=== PATIENT | female | born 1995 | race Caucasian/White ===

== ENCOUNTER 2017-06-10 08:30 | Day surgery (SDC) | payer OTHER, SELFPAY ==
[2017-06-03 17:46] LABS: Internal QC Validated? YES +Cl - CLEAR BKGD; Pregnancy, Urine Negative Negative
[2017-06-03 17:53] LABS: Hematocrit 38.2 % (37-47); Hemoglobin 12.1 g/dl (12.0-15.0); Mean Corp Hgb Conc 31.7 g/gl (32-36); Mean Corpuscular Hgb 25.3 pg (27.0-32.0); Mean Corpuscular Volume 79.7 fL (81-99); Mean Platelet Vol. 10.8 fl (6.2-12.0); Platelet Count 204 K/mm3 (150-450); RBC Distribution Width SD 44.3 fl (35.1-43.9); Red Blood Count 4.79 M/mm3 (4.2-5.4); White Blood Count 6.1 K/mm3 (4.4-11.0)
[2017-06-03 17:54] LABS: International Normalized Ratio 0.9; Partial Thromboplast Time 27.4 Seconds (24.1-36.2); Prothrombin Time (Protime)PT. 12.5 SECONDS (11.7-14.9)
[2017-06-03 17:57] LABS: Scan Indicated on CBC? Y/N NO
[2017-06-03 18:42] LABS: Pregnancy, Serum, hCG Quali. NEGATIVE Negative (0-9 Nonpreg)
[2017-06-10] VITALS (8 sets, daily range): BP systolic 120–140; BP diastolic 67–88; PULSE 63–82; RESP 16–18; TEMP 36.2–36.8; O2SAT 98–100; BMI 26.2
[2017-06-10 08:54] LABS: Internal QC Validated? YES +Cl - CLEAR BKGD; Pregnancy, Urine Negative Negative
--- NOTE | 2017-06-10 09:56 | PCM.DC ---
You will use the following diet at home:: No restrictions Your food should be the consistency of: Regular Discharge Activity: Return to Normal Activity, May Not Drive, May not drive while taking narcotic pain medications., May Shower Return to work on:: 06/17/17 May shower in (days): 0 May resume sexual activity in: 3 weeks Call your doctor if your incision/area has: Sudden Increased Bleeding, Increased Pain/ Swelling, Increased Redness, Foul Smelling Discharge, Swelling at the incision site Call your doctor if you observe: Fever of 101 or Higher, Inability to urinate, Inability to have a bowel movement, Using more than one pad per hour, Shortness of breath, Chest pain, Calf discomfort, Uncontrolled pain Remove Dressing in (days):: 2 Cleanse incision/area with: Soap & Water Allergies/Adverse Reactions: Allergies eluxadoline [From Viberzi] Adverse Reaction (Verified 06/02/17 15:24) Chest tightness Medications to take at Discharge Alosetron HCl [Lotronex] 0.5 mg PO DAILY 06/02/17 Ibuprofen [Motrin] 800 mg PO TID PRN PRN #30 tab 06/10/17 Oxycodone [Oxyir] 5 mg PO Q4H PRN PRN 7 Days #20 tab 06/10/17 The following prescriptions were given: Oxycodone [Oxyir] 5 mg PO Q4H PRN PRN 7 Days #20 tab PRN Reason: Severe Pain (6-10/10) Ibuprofen [Motrin] 800 mg PO TID PRN PRN #30 tab PRN Reason: pain or cramping Primary Care Physician: Vani Hansen PA [Primary Care Provider] - Please Follow Up With: Eliecer Erazo MD When: one week Proposed Discharge Date: 06/10/17
--- NOTE | 2017-06-10 09:59 | PCM.OPRPT ---
Problem List (1) Pelvic pain Status: Chronic (2) Primary female infertility Status: Chronic Report of Operation Date of Procedure: 06/10/17 Pre-Operative Diagnosis: Chronic pelvic pain Post-Operative Diagnosis: Same Surgery/Procedure Performed:: Diagnostic laparoscopy, chromopertubation Description of Surgical Findings:: Normal appearing cervix, uterus, ovaries, and fallopian tubes. Normal appearing liver, stomach, and appendix. No pelvic or abdominal scarring noted. No evidence of endometriosis. There was prompt fill and spill from both fallopian tubes on chromopertubation. momd teacher: Corky Romero Type of Anesthesia:: General Anesthesiologist: Jason Norman Specimen's removed: none Drains: none Estimated Blood Loss (mL): minimal Fluids Replaced: 1000cc LR Description of Procedure: Veronica was taken to the OR with IV running. She was given two grams of Cefotetan intravenously prior to the procedure for infection prophylaxis. General anesthesia was introduced without complication. She was then prepped and draped in the dorsal lithotomy position. SCDs were in place and operational from the preoperative area, through surgery, and into recovery. Attention was first directed to the vagina where an acorn style uterine manipulator was placed. The bladder was drained with a red rubber catheter. Attention was then directed to the abdomen where a 5mm vertical skin incision was made in the lower base of the umbilicus. The under lying subcutaneous tissue was the dissected down to the level of the fascia using blunt dissection with a Carly clamp. The abdominal wall was then elevated and a Veress needle was placed through the umbilical defect into the abdominal cavity. The abdomen was then inflated with CO2 gas to 12 Torr pressure. The veress needle was then removed and replaced with a 5 mm trocar and sleeve. The trocar was removed and replaced with the laparoscope. A thorough survey of the abdomen and pelvis was then performed with findings as mentioned above. A 5mm lateral side port was placed on the right side about 3 cm below the level of the umbilicus lateral to the inferior epigastric vessels. With no significant pelvic pathology noted chromopertubation was performed. There was prompt fill and spill from each fallopian tube. The pelvis was then vigorously irrigated and fluid removed with the suction physician representative. The laparoscopic port sites were removed after gas had been evacuated from the abdomen. The port site incisions were closed with 4-0 Monocryl suture. The incision sites were then injected with 0.25% Marcaine. The uterine manipulator was removed. Sponge and needle counts were correct. She was reversed from anesthesia and taken to the recovery room in stable condition. Grafts/Implants Used: none - Complications none - Admit VTE Documentation VTE Present on Admission: No VTE Mechan Device Prophylaxis: SCD's VTE Pharm Prophylaxis ordered?: No
--- NOTE | 2017-06-10 10:02 | OP.PCM_ITS ---
Problem List (1) Pelvic pain Status: Chronic (2) Primary female infertility Status: Chronic Report of Operation Date of Procedure: 06/10/17 Pre-Operative Diagnosis: Chronic pelvic pain Post-Operative Diagnosis: Same Surgery/Procedure Performed:: Diagnostic laparoscopy, chromopertubation Description of Surgical Findings:: Normal appearing cervix, uterus, ovaries, and fallopian tubes. Normal appearing liver, stomach, and appendix. No pelvic or abdominal scarring noted. No evidence of endometriosis. There was prompt fill and spill from both fallopian tubes on chromopertubation. carpet installer helper: Corky Romero Type of Anesthesia:: General Anesthesiologist: Jason Norman Specimen's removed: none Drains: none Estimated Blood Loss (mL): minimal Fluids Replaced: 1000cc LR Description of Procedure: Veronica was taken to the OR with IV running. She was given two grams of Cefotetan intravenously prior to the procedure for infection prophylaxis. General anesthesia was introduced without complication. She was then prepped and draped in the dorsal lithotomy position. SCDs were in place and operational from the preoperative area, through surgery, and into recovery. Attention was first directed to the vagina where an acorn style uterine manipulator was placed. The bladder was drained with a red rubber catheter. Attention was then directed to the abdomen where a 5mm vertical skin incision was made in the lower base of the umbilicus. The under lying subcutaneous tissue was the dissected down to the level of the fascia using blunt dissection with a Carly clamp. The abdominal wall was then elevated and a Veress needle was placed through the umbilical defect into the abdominal cavity. The abdomen was then inflated with CO2 gas to 12 Torr pressure. The veress needle was then removed and replaced with a 5 mm trocar and sleeve. The trocar was removed and replaced with the laparoscope. A thorough survey of the abdomen and pelvis was then performed with findings as mentioned above. A 5mm lateral side port was placed on the right side about 3 cm below the level of the umbilicus lateral to the inferior epigastric vessels. With no significant pelvic pathology noted chromopertubation was performed. There was prompt fill and spill from each fallopian tube. The pelvis was then vigorously irrigated and fluid removed with the suction cam milling machine operator. The laparoscopic port sites were removed after gas had been evacuated from the abdomen. The port site incisions were closed with 4 -0 Monocryl suture. The incision sites were then injected with 0.25% Marcaine. The uterine manipulator was removed. Sponge and needle counts were correct. She was reversed from anesthesia and taken to the recovery room in stable condition. Grafts/Implants Used: none - Complications none - Admit VTE Documentation VTE Present on Admission: No VTE Mechan Device Prophylaxis: SCD's VTE Pharm Prophylaxis ordered?: No
[2017-06-10] MEDS: Methylene Blue 1% 100 MG/10 ML VIAL (10:25)
[2017-06-10] MEDS: Bupivacaine 0.25% 30 ML Vial (10:38)
[2017-06-10] MEDS: Ondansetron ODT 4 MG Tablet 8 MG PO (13:01)
== END 2017-06-10 13:48 | disposition home or self-care (01) ==
LOC: SDC 08:30 → AC 08:31
PROVIDERS: Family Provider Physician Assistant; PCP Physician Assistant; Visit Provider Obstetrics & Gynecology
PROC: (CPT 49320; principal; 2017-06-10 09:45)
DX: N97.9 Female infertility, unspecified (principal); R10.2 Pelvic and perineal pain; K58.0 Irritable bowel syndrome with diarrhea; Z79.899 Other long term (current) drug therapy; G89.29 Other chronic pain
CPT/HCPCS: 00952; 49320; 58350; 36415; 81025; 84703; 85027; 85610; 85730; 86850; 86900; J7120; J2405

== ENCOUNTER → 2018-02-22 16:31 | Outpatient (CLI) | payer OTHER, SELFPAY ==
[2018-02-22 16:05] VITALS: BMI 26.6
--- NOTE | 2018-02-22 16:35 | RAD_ITS ---
STUDY: X-RAY - LEFT ELBOW REASON FOR EXAM: Female, 23 years old. Pain TECHNIQUE: Three view(s) of the elbow were obtained. COMPARISON: None. FINDINGS: Bones: There are no acute osseous abnormalities. Joints: The visualized joints are normal in appearance. Soft tissues: The soft tissues are unremarkable. There is no elevation of the posterior fat pad. RAD/Elbow min 3 Views IMPRESSION: No acute abnormalities are seen in the left elbow. Electronically Signed: Elisha Rome MD at 16:56 EST Tel Direct: [phone], Service support ,
== END ==
PROVIDERS: Family Provider Physician Assistant; PCP Physician Assistant; Referring Provider Physician Assistant; Visit Provider Physician Assistant
DX: M25.522 Pain in left elbow (principal)
CPT/HCPCS: 73080

== ENCOUNTER → 2019-09-30 11:30 | Outpatient (CLI) | payer OTHER, SELFPAY ==
[2019-09-14 12:45] VITALS: BMI 27.8
--- NOTE | 2019-09-30 15:45 | STRESSREP ---
Stress Test Report Exercise stress test. 24-year-old lady with a history of atypical chest pain. Stress protocol: Resting EKG demonstrates sinus rhythm with a rate of 60 bpm normal intervals are noted resting blood pressure is 104/70 mmHg. The patient exercised according to regular Noe protocol for a total duration of 10 minutes. The maximum heart rate attained was 179 bpm which was 92% of maximum predicted heart rate the maximum workload was 11.7 metabolic equivalents. At rest there were no ST or T wave changes noted to suggest ischemia peak exercise upsloping ST changes only were noted with no meet the criteria for ischemia. No clinical angina was noted the test was terminated due to leg fatigue. There was some chest tightness noted which was fairly constant. The resting blood pressure was 104/70 with a peak blood pressure 132/62 mmHg. Conclusion: Normal exercise stress test at a high workload with no EKG criteria for ischemia. Chest discomfort noted throughout the exertion atypical and not consistent with angina.
== END ==
PROVIDERS: PCP Physician Assistant; Referring Provider Internal Medicine Cardiovascular Disease; Visit Provider Internal Medicine Cardiovascular Disease
DX: R07.9 Chest pain, unspecified (principal)
CPT/HCPCS: 93017

== ENCOUNTER → 2020-09-19 10:07 | Outpatient (CLI) | payer OTHER, SELFPAY ==
[2020-09-13 14:01] VITALS: BMI 27.8
[2020-09-19 12:04] LABS: AST(SGOT) 18 U/L (15-37); Alanine Aminotransfer ALT/SGPT 24 U/L (13-56); Albumin, Serum 3.8 g/dL (3.2-5.0); Alkaline Phosphatase 47 U/L (45-117); Bilirubin, Direct 0.13 mg/dL (0.00-0.30); Cholesterol 143 mg/dL (200); Globulin 3.6 g/dL (2.2-4.2); High Density Lipoprotein 45 mg/dL; Protein, Total 7.4 g/dL (6.4-8.2); T4 Free Direct 0.87 ng/dL (0.76-1.46); Thyroid Stim Hormone (TSH) 1.89 uIU/mL (0.358-3.74); Triglycerides 96 mg/dL; Very Low Density Lipoprotein 19 mg/dL (5-40)
== END ==
PROVIDERS: PCP Physician Assistant; Referring Provider Physician Assistant; Visit Provider Physician Assistant Medical
DX: E78.5 Hyperlipidemia, unspecified (principal); Z82.49 Family history of ischemic heart disease and other diseases of the circulatory system; L70.9 Acne, unspecified; E66.9 Obesity, unspecified
CPT/HCPCS: 36415; 80061; 80076; 82627; 84403; 84439; 84443; 82626

== ENCOUNTER → 2022-03-20 | Outpatient (CLI) | payer OTHER, SELFPAY ==
[2022-03-24 07:07] LABS: Chlamydia By Nucleic Acid AMP Negative (Negative)
[2022-03-24 08:32] LABS: Gonococcus By Nucleic Acid AMP Negative (Negative)
[2022-03-27 22:50] LABS: HPV Reflexed? NOT INDICATED
== END | disposition home or self-care (01) ==
LOC: LABSPEC 15:16
PROVIDERS: PCP Physician Assistant; Referring Provider Registered Nurse; Visit Provider Registered Nurse
DX: Z01.419 Encounter for gynecological examination (general) (routine) without abnormal findings (principal); N93.9 Abnormal uterine and vaginal bleeding, unspecified
CPT/HCPCS: 87491; 87591; 88175; G0145

== ENCOUNTER → 2022-03-26 | Outpatient (CLI) | payer OTHER, SELFPAY ==
--- NOTE | 2022-03-26 16:50 | US_ITS ---
STUDY: ULTRASOUND OF THE FEMALE PELVIS - COMPLETE REASON FOR EXAM: Female, 27 years old. Abnormal uterine bleeding LMP: 03/09/2022 TECHNIQUE: Transvaginal TECHNICAL QUALITY: Adequate. COMPARISON: None. FINDINGS: The uterus is anteverted and is in a midline position. The uterus measures 8 cm x 4.4 cm x 3.7 cm. Normal uterine cervix. The endometrium measures measures 14.4 mm in thickness, and is hyperechoic. There is no demonstrated endometrial mass. There is no demonstrated myometrial mass. I.U.D. - The patient does not have an I.U.D. The right ovary is visualized. The right ovary measures 2.7 cm x 2.1 cm x 1.6 cm. There is a 1.1 cm x 0.9 cm dominant follicle in the right ovary. There is no visualized right adnexal mass or complex lesion. There is normal arterial and normal venous vascularity. The left ovary is visualized. The left ovary measures 3.1 cm x 1.7 cm x 1.8 cm. There is no left ovarian cyst or ovarian mass. There is no visualized left adnexal mass or complex lesion. There is normal arterial and normal venous vascularity. There is no fluid in the cul-de-sac. US/Transvaginal Non- IMPRESSION: Thickened endometrium measuring 14.4 mm. Dominant follicle seen in the right ovary. Electronically Signed: Pito Wade MD at 8:07 EST ,
== END | disposition home or self-care (01) ==
LOC: US 16:48
PROVIDERS: PCP Physician Assistant; Referring Provider Registered Nurse; Visit Provider Registered Nurse
DX: N93.9 Abnormal uterine and vaginal bleeding, unspecified (principal)
CPT/HCPCS: 76830

== ENCOUNTER → 2022-04-02 | Outpatient (CLI) | payer OTHER, SELFPAY ==
--- NOTE | 2022-04-02 14:10 | EMB_PTH ---
PATIENT: DEREJE CALVO LOC: [facility] U#:[id number] AGE/SX: 27/F ROOM: RE04/02/[address]: ROSE MARIE Wilkins : 1995 BED: DIS: 04/02/2022 SPEC #: [id number] RECD: 04/02/22 15:10 STATUS: ISAMAR REShay #: [id number] EMILY: 04/02/22 14:[address]: Christen Wynn NP DEPT: SURGICAL PATHOLOGY RECD BY: Babs Barahona ENTERED: 04/03/22 08:37 SP TYPE: ENDOM BX/C MARIA G DR: TALISHA Junior Tissues: Endometrium, NOS Procedures: Surgery Specimen Level IV HEADER OPERATION: Endometrial biopsy PRE-OP DIAGNOSIS: Abnormal uterine bleeding TISSUE SUBMITTED: Endometrial tissue MICROSCOPIC DIAGNOSIS Endometrial biopsy: Secretory endometrium. CYNTHIA:oksana 04/04/2022 MICROSCOPIC DESCRIPTION Slides are reviewed. GROSS DESCRIPTION Received is one container labeled with the patient's name and not further designated. The specimen consists of multiple irregular fragments of montoya-pink soft tissue that in aggregate measure 2.5 x 3.0 x 0.3 cm. The specimen is totally submitted in one cassette. / SJ:oksana 04/03/2022 TC:4 CPT: 18687
== END | disposition home or self-care (01) ==
LOC: LABSPEC 15:32
PROVIDERS: PCP Physician Assistant; Visit Provider Nurse Practitioner Women's Health
DX: N93.9 Abnormal uterine and vaginal bleeding, unspecified (principal)
CPT/HCPCS: 88305

== ENCOUNTER → 2022-04-09 | Outpatient (CLI) | payer OTHER, SELFPAY ==
[2022-04-09 15:46] LABS: Absolute Lymphocyte Count 2.16 X10^3/uL (0.83-4.51); Absolute Neutrophil Count 3.7 X10^3/uL (2.0-7.7); Basophil# 0.03 X10^3/uL; Basophil% 0.5 % (0-1); Eosinophil# 0.14 X10^3/uL; Eosinophils% 2.2 % (0-5); Hematocrit 41.7 % (37-47); Hemoglobin 14.6 g/dL (12.0-15.0); Lymphocyte # 2.16 X10^3/ul (0.83-4.51); Lymphocyte % 33.8 % (19-41); Mean Corpuscular Hgb 30.6 pg (27.0-32.0); Mean Corpuscular Volume 87.4 fL (81-99); Mean Platelet Vol. 10.4 fl (6.2-12.0); Monocyte# 0.33 X10^3/uL; Monocyte% 5.2 % (0-10); NRBC Flagged by Analyzer 0 % (0-5); Neutrophil # 3.73 X10^3/uL (2.7-7.7); Neutrophil % 58.3 % (47-70); Platelet Count 209 K/mm3 (150-450); RBC Distribution Width CV 12.2 % (11.6-14.6); RBC Distribution Width SD 39.3 fl (35.1-43.9); Red Blood Count 4.77 M/mm3 (4.2-5.4); White Blood Count 6.4 K/mm3 (4.4-11.0)
[2022-04-09 16:06] LABS: Hemoglobin A1c 4.9 % (3.8-5.6)
[2022-04-09 17:22] LABS: Follicle Stimulating Hormone 7.1 mIU/mL; Luteinizing Hormone 5.3 mIU/mL; T4 Free Direct 0.96 ng/dL (0.76-1.46); Thyroid Stim Hormone (TSH) 2.23 uIU/mL (0.358-3.74)
== END | disposition home or self-care (01) ==
LOC: LAB 15:23
PROVIDERS: PCP Physician Assistant; Visit Provider Registered Nurse
DX: N93.9 Abnormal uterine and vaginal bleeding, unspecified (principal)
CPT/HCPCS: 36415; 83001; 83002; 83036; 84439; 84443; 85025

== ENCOUNTER 2022-09-30 12:25 | Emergency (ER) | payer OTHER, SELFPAY ==
[2022-09-30 12:25] VITALS: BP 130/83; PULSE 79; RESP 16; TEMP 36.6; O2SAT 100; BMI 30.9
--- NOTE | 2022-09-30 14:19 | EDS_ITS ---
HPI HPI - Female History of Present Illness Chief Complaint: Vag Bleeding Informant: patient Narrative Narrative: Patient is a 27-year-old female with history of heavy and painful periods, follows with [facility] RN, presenting with heavy vaginal bleeding. Her last menstrual period was September 05. She states it was a relatively normal menstrual cycle. She states her period is not due for another 6 days. Patient states she started having vaginal bleeding like a period on Thursday, 4 days ago. She states 2 days ago it became heavy. She states she went through 2 tampons in less than 2 hours and was passing clots. She went through 6-7 pads overnight. They seem to be medium pads. She states that today she had even more bleeding and started feel dizzy. She states when she is walking around she passed a clot approximately the size of a baseball. Patient denies any history of any bleeding issues except for having heavy bleeding. She states her half- sister has blood clots history. Patient states that she has had OB evaluation and was told she has thickened endometrial lining. She has had a prior uterine biopsy before. She was told possibly she might need a D&C but she is plan on starting to trying to conceive this month so she had not had the D&C done. Is complaining of pelvic cramping. No other complaints or concerns at this time. [facility] Medical History (Updated 09/30/22 @ 17:[address] Shirin Macdonald DO) Cardiac murmur due to mitral valve disorder Chronic neck and back pain GERD (gastroesophageal reflux disease) IBS (irritable bowel syndrome) Myxomatous mitral valve Primary female infertility Severe frontal headaches Shoulder pain Home Medications multivitamin 1 tab PO DAILY 04/02/22 [History Last Taken Unknown] famotidine 40 mg tablet (Pepcid) 40 mg PO QHS #14 tabs 09/30/22 [Rx Last Taken Unknown] tranexamic acid 650 mg tablet 650 mg PO Q8H 5 days #15 tabs 09/30/22 [Rx Last Taken Unknown] Allergy/AdvReac Type Severity Reaction Status Date / Time eluxadoline [From Vibben] AdvReac Chest Verified 09/30/22 12:27 tightness Family History Mother Heart disease, Onset Age: 47 CAD (coronary artery disease) Grandmother Heart disease, Onset Age: 46 CAD (coronary artery disease) Grandfather CAD (coronary artery disease) Other Cancer Hypertension Surgical History History of esophagogastroduodenoscopy (EGD) History of laparoscopy Social History Smoking Status: Never smoker alcohol intake: current alcohol intake frequency: a few times a month substance use type: does not use what type of physical activity do you participate in: aerobics and weight training frequency: 5-6 times per week ROS ROS ED Constitutional Constitutional ED: Reports other Details: Lightheaded/dizzy ; Denies chills or fever(s) Eyes Eyes: Denies change in vision Cardiovascular Cardiovascular: Denies chest pain Respiratory/Chest Respiratory/Chest: Denies cough Gastrointestinal Gastrointestinal: Reports abdominal pain; Denies nausea or vomiting Genitourinary Genitourinary ED: Reports other Details: Heavy uterine bleeding, pelvic cramping Musculoskeletal Musculoskeletal: Denies arthralgias or myalgias Integumentary Denies rash Neurologic Neurologic: Denies headache(s) Psychiatric Psychiatric: Denies anxiety Hematologic/Lymphatic Hematologic/Lymphatic: Denies easy bleeding or easy bruising EXAM Physical Exam Const Vital Signs: 09/30/22 12:25 09/30/22 17:31 Temperature 98 F Temperature Source Temporal Pulse Rate 79 65 Respiratory Rate 16 16 Blood Pressure 130/83 H 112/73 Blood Pressure Mean 98 Pulse Ox 100 97 Oxygen Delivery Method Room Air Positive well nourished and well developed General Appearance ED: well developed and NAD; Negative for pallor HEENT Reports moist mucous membranes Eyes PERRL and EOMs intact bilaterally General Eye ED: Negative for pale conjunctiva Neck supple Chest Wall inspection of chest normal and palpation of chest normal Resp normal respiratory effort and clear to auscultation bilaterally GI normal to inspection, nondistended, normoactive bowel sounds Palpation: tender suprapubic Extremity full ROM Neuro oriented x3 Sensorium / Orientation: alert Motor Exam: Negative for general weakness Psych mental status grossly normal Skin no rashes or lesions noted and no wounds General Skin Exam: Negative for jaundice or pallor MDM MDM MDM Narrative Medical decision making narrative: Patient is evaluated for heavy vaginal bleeding for the past few days. Does have a history of this as well as painful periods but this is heavier than normal. She also is dizzy. Vital signs are normal. She is given IV fluids. Will check CBC and urine . CBC shows a normal hemoglobin of 13.2 and her test is negative. She does not have an abnormal MCV or MCH. I spoke with EMERGENCY DEPARTMENT RN on-call, Dr. Gutierrez, who recommends either starting TXA or Megace (TXA if she is going to be trying to conceive and wants to avoid hormones) and then outpatient follow-up. I went to discuss plan of care with patient and reevaluate. She then says what about my chest pain. She had never previously mentioned any chest pain. Patient states that she is been having intermittent right-sided chest pain for the past few days that also radiates up and down her sternum. She notes she has had prior issues with reflux before but never been on any medicine. Does not currently have any chest pain. Does seem to be better when she sits up and worse when she lays flat. Denies any difficulty breathing. No other complaints or concerns at this time. Patient will be given Toradol to help with the bleeding in the ER and I will add on an EKG and a chest x-ray to rule out findings consistent with pericarditis on EKG. She denies any pleuritic pain. She is PE RC negative I do not think she needs work-up for pulmonary emboli. EKG shows sinus bradycardia with sinus arrhythmia. I do not think is cont ributory chest pain. No signs of pericarditis or ACS. Two-view chest x-ray to rule myself as well as radiology does not show any acute process. Patient is feeling better after Toradol for her cramps. No further chest pain. Discharged home. Lab Data Attestation: I reviewed the patient's lab results. Labs: Laboratory Results - last 24 hr 09/30/22 13:00 WBC 9.1 RBC 4.35 Hgb 13.2 Hct 39.3 MCV 90.3 MCH 30.3 MCHC 33.6 RDW Std Deviation 40.1 RDW Coeff of Maryuri 12.3 Plt Count 196 MPV 11.7 Immature Gran % (Auto) 0.300 Neut % (Auto) 73.5 H Lymph % (Auto) 20.8 [place] % (Auto) 4.9 Eos % (Auto) 0.2 Baso % (Auto) 0.3 Absolute Neuts (auto) 6.7 Absolute Lymphs (auto) 1.88 Nucleated RBC % 0 Urine Test Negative Radiography Chest X-Ray - ED: 2 View, Read by ED Physician, Read by Radiologist and No Acute Disease Diagnostic Testing: Clinical Impression(s) from Imaging Studies Chest X-Ray 09/30/22 15:30 IMPRESSION: No radiographic evidence of acute cardiopulmonary disease. Electronically Signed: Sean Harris DO at 16:48 EDT Reading Location ID and State: [facility] / [place] Tel [phone], Service support , Rhythm Strip Rhythm Strip: Sinus Rhythm Rate: 55 Ectopy: None EKG Initial EKG: Attestation: I personally reviewed and interpreted this EKG as follows: Interpretation: Sinus Bradycardia Comments: Sinus bradycardia at a rate of 55 bpm with sinus arrhythmia WA interval [address] segments Management Discussion w/another healthcare provider: Washer Off Discharge Plan Triage Chief Complaint: Vag Bleeding ED Provider: Shirin Macdonald Dx/Rx/DC Orders Clinical Impression: Abnormal uterine bleeding, Chest pain Instructions: ED Chest Pain, Noncardiac, ED Dysfunctional Uterine Bleeding Prescriptions: New tranexamic acid 650 mg tablet 650 mg PO Q8H 5 Days Qty: 15 0RF famotidine [Pepcid] 40 mg tablet 40 mg PO QHS Qty: 14 0RF No Action multivitamin Tablet 1 tab PO DAILY Primary Care Provider: Vani Hansen Referrals: Elisha Linares DO [Med Staff - Active Staff] - Keep Grace appointment Vani Hansen PA [Primary Care Provider] - Activity Restrictions/Additional Instructions: Exact cause of your chest pain is not clear. While you having heavy vaginal bleeding your hemoglobin and vital signs are stable. Please continue follow-up with your EMERGENCY DEPARTMENT RN. You may also take up to 600 mg (3 pills at a time) of ibuprofen every 6 hours. The anti-inflammatory effect of this helps with heavy vaginal bleeding. Disposition Disposition: Home, Self Care Discharge Date/Time: 09/30/22 17:33
[2022-09-30] MEDS: 0.9% Normal Saline 1,000 ML 1000 ML IV (14:27)
[2022-09-30 14:28] LABS: Absolute Lymphocyte Count 1.88 X10^3/uL (0.83-4.51); Absolute Neutrophil Count 6.7 X10^3/uL (2.0-7.7); Basophil# 0.03 X10^3/uL; Basophil% 0.3 % (0-1); Eosinophil# 0.02 X10^3/uL; Eosinophils% 0.2 % (0-5); Hematocrit 39.3 % (37-47); Hemoglobin 13.2 g/dL (12.0-15.0); Lymphocyte # 1.88 X10^3/ul (0.83-4.51); Lymphocyte % 20.8 % (19-41); Mean Corp Hgb Conc 33.6 g/dL (32-36); Mean Corpuscular Hgb 30.3 pg (27.0-32.0); Mean Corpuscular Volume 90.3 fL (81-99); Mean Platelet Vol. 11.7 fl (6.2-12.0); Monocyte# 0.44 X10^3/uL; Monocyte% 4.9 % (0-10); NRBC Flagged by Analyzer 0 % (0-5); Neutrophil # 6.65 X10^3/uL (2.7-7.7); Neutrophil % 73.5 % (47-70); Platelet Count 196 K/mm3 (150-450); RBC Distribution Width CV 12.3 % (11.6-14.6); RBC Distribution Width SD 40.1 fl (35.1-43.9); Red Blood Count 4.35 M/mm3 (4.2-5.4); White Blood Count 9.1 K/mm3 (4.4-11.0)
[2022-09-30 14:55] LABS: Internal QC Validated? YES +Cl - CLEAR BKGD; Pregnancy, Urine Negative Negative
--- NOTE | 2022-09-30 15:18 | EKG12_ITS ---
Test Reason : VAG BLEEDING Blood Pressure : / mmHG Vent. Rate : 055 BPM Atrial Rate : 055 BPM P-R Int : 102 ms QRS Dur : 078 ms QT Int : 472 ms P-R-T Axes : 014 031 028 degrees QTc Int : 451 ms Sinus bradycardia with sinus arrhythmia with short IN Otherwise normal ECG Confirmed by ARTHUR ALMEIDA ([id number]), film or videotape editor FRANKIE PITTS ([id number]) on 10/02/2022 11:36:20 AM Referred By: Confirmed By:ARTHUR ALMEIDA
[2022-09-30] MEDS: Ketorolac 15 MG/ML Vial IV (15:23)
--- NOTE | 2022-09-30 15:30 | RAD_ITS ---
INDICATION: chest pain EXAMINATION/TECHNIQUE: X-RAY - XR Chest 2 Views COMPARISON: FINDINGS: LINES/DEVICES: None. LUNGS: No consolidation, edema or effusion. No pneumothorax. MEDIASTINUM AND CARDIOVASCULAR STRUCTURES: Cardiac silhouette not enlarged. Central airways and mediastinal contour are unremarkable. BONES AND SOFT TISSUES: Unremarkable. RAD/Chest PA and Lateral IMPRESSION: No radiographic evidence of acute cardiopulmonary disease. Electronically Signed: Sean Harris DO at 16:48 EDT ,
[2022-09-30 17:31] VITALS: BP 112/73; PULSE 65; RESP 16; O2SAT 97
== END 2022-09-30 17:33 | disposition home or self-care (01) ==
PROVIDERS: Emergency Provider Emergency Medicine; PCP Physician Assistant; Visit Provider Emergency Medicine
DX: N93.9 Abnormal uterine and vaginal bleeding, unspecified (principal); K21.9 Gastro-esophageal reflux disease without esophagitis; Z79.899 Other long term (current) drug therapy; R07.9 Chest pain, unspecified
CPT/HCPCS: 71046; 81025; 85025; 93005; 96361; 96374; 99283; J7030; A4216

== ENCOUNTER → 2022-10-10 | Outpatient (CLI) | payer OTHER, SELFPAY | END | disposition home or self-care (01) | LOC: LABSPEC 16:54 | PROVIDERS: PCP Physician Assistant; Referring Provider Registered Nurse; Visit Provider Registered Nurse | DX: N93.9 Abnormal uterine and vaginal bleeding, unspecified (principal) | CPT/HCPCS: 87070; 87077; 87186; 87205 ==

== ENCOUNTER → 2022-12-08 | Outpatient (CLI) | payer OTHER, SELFPAY ==
[2022-12-08 08:29] LABS: AST(SGOT) 15 U/L (15-37); Alanine Aminotransfer ALT/SGPT 25 U/L (13-56); Albumin, Serum 3.3 g/dL (3.2-5.0); Alkaline Phosphatase 36 U/L (45-117); Bilirubin, Direct 0.08 mg/dL (0.00-0.30); Cholesterol 138 mg/dL (200); Globulin 3.7 g/dL (2.2-4.2); High Density Lipoprotein 58 mg/dL; Triglycerides 44 mg/dL; Very Low Density Lipoprotein 9 mg/dL (5-40)
== END | disposition home or self-care (01) ==
LOC: LAB 06:30
PROVIDERS: PCP Physician Assistant; Referring Provider Physician Assistant Medical; Visit Provider Physician Assistant Medical
DX: E78.5 Hyperlipidemia, unspecified (principal); Z82.49 Family history of ischemic heart disease and other diseases of the circulatory system
CPT/HCPCS: 36415; 80061; 80076

== ENCOUNTER → 2023-01-12 | Outpatient (CLI) | payer OTHER, SELFPAY ==
--- NOTE | 2023-01-12 08:11 | ECHOD_ITS ---
Reason For Study: MVP Procedure This was a 2D Doppler, Color Flow transthoracic echocardiogram. Exam performed in department. Left Ventricle Normal LV size. Left ventricular systolic function is normal. The estimated ejection fraction is 60 %. No regional wall motion abnormalities noted. Right Ventricle Normal RV size. Normal systolic function. Atria Normal left atrium. Normal right atrium. Mitral Valve Normal mitral valve. Tricuspid Valve Normal tricuspid valve. Aortic Valve Normal aortic valve. Trisinus/trileaflet aortic valve. Pulmonic Valve Normal pulmonic valve. Great Vessels Normal aortic root. The pulmonary artery is normal size. Normal inferior vena cava. Pericardium/Pleural No pericardial effusion. MMode/2D Measurements & Calculations LVIDd: 4.9 cm IVSd: 0.66 cm Ao root diam: 2.8 cm LVIDs: 3.6 cm LVPWd: 0.68 cm LA dimension: 2.9 cm RVDd: 3.5 cm FS: 27.4 % LAV(MOD-bp): 30.7 ml LA A4 area: 14.4 cm2 RA A4 area: 15.3 cm2 LAV(MOD-bp) Indexed: 17.3 ml/m2 LAV(MOD-sp2): 27.4 ml LAV(MOD-sp4): 33.6 ml TAPSE: 1.9 cm Time Measurements MV dec time: 0.29 sec Doppler Measurements & Calculations MV E max luis: 82.1 cm/sec Lat Peak E' Luis: 23.8 cm/sec Med Peak E' Luis: 17.3 cm/sec MV A max luis: 48.1 cm/sec E/E' lat: 3.5 E/E' med: 4.7 MV E/A: 1.7 MV V2 max: 85.7 cm/sec MV P1/2t max luis: 86.1 cm/sec Ao V2 max: 130.4 cm/sec MV max P.9 mmHg MV P1/2t: 89.3 msec Ao max P.8 mmHg MV V2 mean: 40.4 cm/sec Ao V2 mean: 93.5 cm/sec MV mean P.82 mmHg MV dec slope: 282.4 cm/sec2 Ao mean P.9 mmHg MV V2 VTI: 26.0 cm MVA(P1/2t): 2.5 cm2 Ao V2 VTI: 28.8 cm AV (velocity ratio): 0.86 LV V1 max: 112.6 cm/sec PA V2 max: 112.1 cm/sec TR max luis: 188.7 cm/sec LV V1 max P.1 mmHg PA V2 mean: 78.1 cm/sec TR max P.2 mmHg LV V1 mean P.0 mmHg LV V1 mean: 81.8 cm/sec LV V1 VTI: 24.7 cm ECHO/Echo Complete Interpretation Summary Normal LV size. Left ventricular systolic function is normal. The estimated ejection fraction is 60 %. Structurally normal valves. Ordering Physician: Amairani Brooke Referring Physician: Amairani Brooke Performed By: Ki Sigala RCS
== END | disposition home or self-care (01) ==
LOC: CVS 08:10
PROVIDERS: PCP Physician Assistant; Referring Provider Physician Assistant Medical; Visit Provider Physician Assistant Medical
DX: I34.1 Nonrheumatic mitral (valve) prolapse (principal); Z82.49 Family history of ischemic heart disease and other diseases of the circulatory system
CPT/HCPCS: 93306

== ENCOUNTER → 2024-04-20 | Outpatient (CLI) | payer OTHER, SELFPAY ==
[2024-04-20 19:30] LABS: Cholesterol 150 mg/dL (<=200); High Density Lipoprotein 44 mg/dL; Low Density Lipoprotein Calc. 83 mg/dL; Triglycerides 117 mg/dL; Very Low Density Lipoprotein 23 mg/dL (5-40); cholesterol:hdl ratio screen 3.45
[2024-04-20 19:31] LABS: AST(SGOT) 22 U/L (<=31); Alanine Aminotransfer ALT/SGPT 20 U/L (<=34); Albumin, Serum 4.3 g/dL (3.5-5.0); Alkaline Phosphatase 30 U/L (35-104); Bilirubin, Direct < 0.08 mg/dL (0.00-0.30); Globulin 3.1 g/dL (2.2-4.2); Protein, Total 7.3 g/dL (5.9-8.4); Total Bilirubin 0.18 mg/dL (0.00-1.30)
== END | disposition home or self-care (01) ==
LOC: LAB 16:07
PROVIDERS: PCP Physician Assistant; Referring Provider Physician Assistant Medical; Visit Provider Physician Assistant Medical
DX: E78.5 Hyperlipidemia, unspecified (principal); Z82.49 Family history of ischemic heart disease and other diseases of the circulatory system
CPT/HCPCS: 36415; 80061; 80076

== ENCOUNTER → 2024-07-21 | Outpatient (CLI) | payer OTHER, SELFPAY ==
[2024-07-21 09:06] LABS: Internal QC Validated? YES +Cl - CLEAR BKGD; Pregnancy, Urine Negative Negative
== END | disposition home or self-care (01) ==
PROVIDERS: PCP Physician Assistant; Referring Provider Anesthesiology Pain Medicine; Visit Provider Anesthesiology Pain Medicine
DX: Z34.90 Encounter for supervision of normal pregnancy, unspecified, unspecified trimester (principal)
CPT/HCPCS: 81025

== ENCOUNTER → 2025-02-06 | Outpatient (CLI) | payer OTHER, SELFPAY ==
--- NOTE | 2025-02-06 09:58 | CDU_ITS ---
Reason For Study Reason For Study: Dizziness Rt. Velocities/BP Lt. Velocities/BP Prox CCA 118.0/23.0 cm/sec. Prox CCA 116.2/23.0 cm/sec. Mid CCA 101.4/24.1 cm/sec. Mid CCA 107.0/24.8 cm/sec. Dist CCA 100.2/24.1 cm/sec. Dist CCA 79.8/20.4 cm/sec. Prox ICA 73.2/30.2 cm/sec. Prox ICA 62.2/23.7 cm/sec. Mid ICA 91.6/37.6 cm/sec. Mid ICA 86.4/39.1 cm/sec. Dist ICA 86.7/35.1 cm/sec. Dist ICA 75.4/33.6 cm/sec. Rt. ICA/CCA = 0.9. Lt. ICA/CCA = 0.8. Prox ECA 95.3/15.5 cm/sec. Prox ECA 82.0/12.7 cm/sec. Rt. Vert. 59.1/18.5 cm/sec. Lt. Vert. 59.8/16.2 cm/sec. Right Extracranial There is no significant atherosclerotic plaque noted in the right common carotid artery. There is no significant atherosclerotic plaque noted in the right internal carotid artery. There is no significant atherosclerotic plaque noted in the right external carotid artery. Antegrade flow is noted in the right vertebral artery. Left Extracranial There is no significant atherosclerotic plaque noted in the left common carotid artery. There is no significant atherosclerotic plaque noted in the left internal carotid artery. There is no significant atherosclerotic plaque noted in the left external carotid artery. Antegrade flow is noted in the left vertebral artery. Procedure Carotid Duplex [id number]. This is a Carotid Duplex examination using B-mode, color flow and specral Doppler. The exam was diagnostic. Exam performed in department. VL/Carotid Duplex Ultrasound Interpretation Summary No significant atherosclerotic plaque or stenosis noted in the internal carotid arteries bilaterally. Flow within the vertebral arteries is antegrade bilaterally. Ordering Physician: Tamir Romero Referring Physician: Vani Hansen Performed By: [facility]
== END | disposition home or self-care (01) ==
LOC: CVS 09:58
PROVIDERS: PCP Physician Assistant; Referring Provider Otolaryngology Otolaryngology/Facial Plastic Surgery; Visit Provider Otolaryngology Otolaryngology/Facial Plastic Surgery
DX: R42 Dizziness and giddiness (principal)
CPT/HCPCS: 93880

== ENCOUNTER → 2025-02-08 | Outpatient (CLI) | payer OTHER, SELFPAY ==
--- OUTSIDE RECORDS SUMMARY | 2025-02-08 11:58 | XMS RPT_ITS | CCD ---
Author Organization [facility] Team Providers Care Franchise Business Consultant Name Role Phone TALISHA Vegas Primary Care Provider TALISHA Vegas Referring Provider MERE Desir Attending Provider Kingsley MATERIAL CHASER, ROSE MARIE Velásquez Attending Provider [phone] TALISHA Vegas Primary Care Provider TALISHA Vegas Referring Provider MERE Desir Attending Provider Dr. Jamison Alex Attending Provider [phone] Dr. Nils Bond Attending Provider TALISHA Fried Attending Provider VANI OBANDO Consulting Unavailable MACHADO, JOHN DO Admitting Unavailable MACHADO, JOHN DO Primary Care Unavailable MACHADO, JOHN DO Attending Unavailable PROVIDER, UNKNOWN Consulting Unavailable MACHADO, JOHN DO Admitting Unavailable MACHADO, JOHN DO Primary Care Unavailable MACHADO, JOHN DO Attending Unavailable VANI OBANDO J Consulting Unavailable PROVIDER, UNKNOWN Consulting Unavailable TALISHA Vegas Primary Care Provider TALISHA Vegas Referring Provider MERE Desir Attending Provider [phone] Jamison Alex Attending Provider [phone] Dr. Nils Bond Attending Provider TALISHA Fried Attending Provider Gume MATERIAL CHASER, TC-Renea Beaver Attending Provider Obando, Vani J Primary Care Provider Obando, Vani J Primary Care Provider Tyrone PYLE, Vani J Unavailable Obandocorinna PYLE, Vani J Unavailable Drying Equipment Operator/Gynecology Prov. Unavailable Un available Niles credit card interviewer, . . Unavailable Cardiology Provider Unavailable Unavailable [facility] Unavailable Willard REGALADO, Dr. Mak Griffin Unavailable Juana ARELLANON, Carmen Nelson Unavailable Unavailab deya Franks LPN, Elisha Unavailable Unavaildeonte Jones NP-C, Pavan Evans Unavailable Amairani Dalton LPN Unavailable Unavailable Amairani Cheng MA Unavailable Unavailable Unavailable Unavailable Vani Vegas Primary Care Provider Vani Vegas Referring Provider Barbi Cheung Attending Provider Amairani Fried Attending Provider Amairani Fried Referring Provider OBANDO, VANI J Primary Care Unavailable JOHN SHEN Referring Unavailable OBANDO, VANI J Primary Care Unavailable OBANDO, VANI J Primary Care Unavailable THIAGO RUBI Referring Unavailable OBANDO, VANI J Primary Care Unavailable OBANDO, VANI J Primary Care Unavailable THIAGO RUBI Attending Unavailable SELF Referring Unavailable OBANDO, VANI J Primary Care Unavailable ERYN WHITE Referring Unavailable OBANDO, VANI J Primary Care Unavailable OBANDO, VANI J Primary Care Unavailable OBANDO, VANI J Primary Care Unavailable OBANDO, VANI J Primary Care Unavailable URBANO DAUGHERTY Referring Unavailable OBANDO, VANI J Primary Care Unavailable OBANDO, VANI J Primary Care Unavailable Obando PA, Vani Primary Care Provider Tyrone WOODALL Vani Referring Provider Francesco REGALADO, Dr. Villalba Attending Provider Francesco REGALADO, Dr. Villalba Referring Provider Vani Vegas Referring Unavailable Amairani Brooke [facility]ending [facility] Deejay Maya Attending Unavailable Deejay Maya Referring Unavailable Tyrone [facility] Unavailable Amairani Brooke Attending [facility] Zapata Referring UnavailKati [facility]ALLM[facility] Unavailable Obando PA, Vani Referring Unavailable Barbi Jolly Attending Unavailable [facility] Unavailable Allergies Allergy Classification Reported Allergen(s) Allergy Type Date of Onset Reaction(s) Facility (20 sources) eluxadoline; Translations: [ELUXADOLINE] Drug Allergy 9 Unknown, Other: See Comments [facility] (1 source) eluxadoline Drug Allergy [facility] Repository Medications Current Medications Medication Drug Class(es) Dates Sig (Normalized) Sig (Original) [id number] 200 actuat albuterol 0.09 mg/actuat metered dose inhaler (5 sources) beta2-Adrenergic Agonist Start: 02-04-2024 take 2 puff(s) by inhalation every six hours as needed for wheezing albuterol HFA (PROVENTIL HFA, VENTOLIN HFA) 90 mcg/actuation inhaler Inhale 2 Puffs as instructed every 6 hours as needed for wheezing/shortnes s of breath. 8 g 02/04/2024 Active azelaic acid 0.15 mg/mg topical gel (14 sources) Start: 03-02-2023 Azelaic Acid 15 % gel Apply to affected area two times a day. TO FACE 03/02/2023 Active Comment on above: Apply to affected ar ea two times a day. TO FACE baclofen 10 mg oral tablet (16 sources) gamma-Aminobutyri c Acid-ergic Agonist Start: 04-20-2024 take 1 tablet by mouth once daily Baclofen 10 mg tablet Active 10 mg PO daily April 20, 2024 1:00am Start: 05-14-2023 take 1 tablet by marianna once daily baclofen 5 mg tablet Take 5 mg by mouth once daily. 05/14/2023 Active Comment on above: Take 5 mg by mouth o nce daily. benzonatate 100 mg oral capsule (6 sources) Non-narcotic Antitussive Start: 01-23-20 End: 04-20-19 take 1 capsule by mouth three times daily as needed for cough benzonatate (TESSALON PERLE) 100 mg capsule Indications: Influenza Take 1 capsule by mouth three times a day as needed for cough for up to 7 days. 21 capsule 04/12/2024 04/19/2024 Active 12 hr cetirizine hydrochloride 5 mg / pseudoephedrine hydrochloride 120 mg extended release oral tablet (1 source) alpha-Adrenergic Agonist, Histamine-1 Receptor Antagonist Start: 06-26-19 End: 07-08-19 take 1 tablet by mouth twice daily cetirizine-pseudoe phedrine (ZYRTEC-D) 5-120 mg per tablet Indications: Seasonal allergic rhinitis, unspecified trigger Take 1 tablet by mouth two times a day for 12 days. 24 tablet 06/25/2024 07/07/2024 Active clindamycin 0.01 mg/mg topical gel (11 sources) Lincosamide Antibacterial clindamycin (CLEOCIN-T) 1 % gel Apply to affected area two times a day. Active doxycycline hyclate 100 mg oral tablet (11 sources) Tetracycline-class Drug Start: 01-17-20 End: 01-22-20 take 1 tablet by mouth twice daily doxycycline (VIBRA-TABS) 100 mg tablet Take 1 tablet by mouth two times a day for 5 days. 10 tablet 01/17/2024 01/22/2024 Active Start: 05-14-2023 End: 08-10-2023 take 1 capsule by mouth twice daily, then take 1 capsule by mouth in the morning, then take 1 capsule by mouth in the evening doxycycline monohydrate (MONODOX) 100 mg capsule TAKE 1 CAPSULE BY MOUTH TWICE DAILY (TAKE 1 CAPSULE IN THE MORNING AND 1 CAPSULE IN THE EVENING) WITH A FULL GLASS OF WATER AND FOOD 05/14/2023 08/10/2023 Discontinued (Patient chooses alternative therapy) Start: 04-02-2022 End: 04-09-2022 take 1 capsule by mouth twice daily Doxycycline Monohydrate 100 mg capsule Discontinued 100 mg PO TWICE A DAY 14 7 April 02, 2022 1:00am April 08, 2022 1:00am April 09, 2022 1:09am Comment on above: TAKE 1 CAPSULE BY MO [facility] TWICE DAILY (TAKE 1 CAPSULE IN THE MORNING AND 1 CAPSULE IN THE EVENING) WITH A FULL GLASS OF WATER AND FOOD Inhalational Spacing Device (1 source) Start: End: Inhalational Spacing Device 1 Device one time only for 1 dose. 1 Each 02/04/2024 02/04/2024 Active meloxicam 15 mg oral tablet (16 sources) Nonsteroidal Anti-inflammatory Drug Start: take 7.5 mg by mouth once daily Meloxicam 15 mg tablet Active 7.5 mg PO daily April 20, 2024 1:00am Start: 05-14-2023 take 1 tablet by marianna th once daily meloxicam (MOBIC) 7.5 mg tablet Take 7.5 mg by mouth once daily. 05/14/2023 Active Comment on above: Take 7.5 mg by mouth once daily. Multivitamin Oral Tablet (5 sources) take 1 tablet by mouth once daily Multivitamin Oral Tablet ; 1 daily Multivitamin preparation (11 sources) Start: 04-02-2022 take 1 tablet by mouth once daily Multivitamin Active 1 TABLET PO DAILY April 02, 2022 1:00am Start: 04-02-2022 take 1 tablet by marianna th once daily Multivitamin Active 1 TABLET PO DAILY April 02, 2022 12:00am Start: 09-14-2019 End: 09-13-2020 take 1 tablet by mouth once daily Multivitamin Discontinued 1 TABLET PO DAILY September 14, 2019 12:00am September 13, 2020 1:59pm Start: 09-14-2019 End: 09-13-2020 take 1 tablet by mouth once daily Multivitamin Discontinued 1 TABLET PO DAILY September 13, 2019 11:00pm September 13, 2020 12:59pm Multivitamin tablet (4 sources) Start: 04-02-2022 Multivitamin t ablet Active 1 {tbl} PO DAILY April 02, 2022 1:00am Start: 09-14-2019 End: 09-13-2020 Multivitamin tablet Disconti nued 1 {tbl} PO DAILY September 14, 2019 12:00am September 13, 2020 1:59pm mupirocin 0.02 mg/mg topical ointment (1 source) RNA Synthetase Inhibitor Antibacterial Start: 09-07-2023 End: 09-12-2023 mupirocin (BACTROBAN) 2 % ointment Apply to affected area three times a day for 5 days. 30 g 0 09/07/2023 09/12/2023 Active Seffner (Nk) (1 source) Start: 09-13-2020 Seffner (Nk) Active September 12, 2020 11:00pm oseltamivir 75 mg oral capsule (1 source) Neuraminidase Inhibitor Start: 04-12-2024 End: 04-17-2024 take 1 capsule by mouth twice daily oseltamivir (TAMIFLU) 75 mg capsule Indications: Influenza Take 1 capsule by mouth two times a day for 5 days. 10 capsule 04/12/2024 04/17/2024 Active predniSONE 10 mg oral tablet (7 sources) Start: 02-04-2024 End: 02-09-2024 take 4 tablets by mouth once daily predniSONE (DELTASONE) 10 mg tablet Take 4 tablets by mouth once daily for 5 days. 20 tablet 02/04/2024 02/09/2024 Active Start: 08-10-2023 End: 08-17-2023 take 4 tablets by mouth once daily, then take 2 tablets by mouth once daily, then take 1 tablet by mouth once daily predniSONE (DELTASONE) 10 mg tablet Indications: Cough, unspecified type , Nasal congestion Take 4 tablets by mouth once daily for 3 days, THEN 2 tablets once daily for 3 days, THEN 1 tablet once daily for 1 day. Take with food.. 19 tablet 0 08/10/2023 08/17/2023 Active Start: 09-10-2017 End: 07-13-2018 take 3 tablets by mouth once daily, then take 2 tablets by mouth once daily, then take 1 tablet by mouth once daily, then take 0.5 tablet by mouth once daily PredniSONE 20 MG Oral Tablet ; 1 (one) Tablet as directed for 0 days Quantity: 20 {Tablet} Refills: 0 Ordered: 13-Jul-2018 Start: 10-Sep-2017 End: 13-Jul-2018 Status: Inactive Comments: Take 3tabs qd for 3 days thenTake 2tabs qd for 3 days thenTake 1tab qd for 3 days thenTake 1/2tab qd for 4 days. Comment on above: Take 3tabs qd for 3 days thenTake 2tabs qd for 3 days thenTake 1tab qd for 3 days thenTake 1/2tab qd for 4 days. spironolactone 100 mg oral tablet (11 sources) Aldosterone Antagonist Start: 08-19-19 take 1 tablet by mouth once daily spironolactone (ALDACTONE) 100 mg tablet TAKE 1 TABLET BY MOUTH NIGHTLY WITH A FULL GLASS OF WATER 08/19/2023 Active Completed/Discontinued Medications Medication Drug Class(es) Dates Sig (Normalized) Sig (Original) alosetron 0.5 mg oral tablet (20 sources) Serotonin-3 Receptor Antagonist Start: 06-02-2017 End: 08-10-2023 take 1 tablet by mouth once daily Alosetron 0.5 MG tablet Discontinued 0.5 mg PO DAILY June 02, 2017 12:00am September 14, 2019 1:39pm Comment on above: alosetron ALOSETRON HCL 0.5 MG TABS 1 tablet daily ALOSETRON HCL [id number] Lee Ann Kaye LPN 09-22-2017 [facility] ([id number]) benzoyl peroxide 0.05 mg/mg / erythromycin 0.03 mg/mg topical gel (5 sources) Macrolide, Macrolide Antimicrobial Start: 07-25-2016 End: 01-09-2017 Benzamycin 5-3 % External Gel ; 1 (one) Gel application to face BID for 0 days Quantity: 47 {Gram} Refills: 1 Ordered: 09-Jan-2017 MARIA ESTHER Franks Start: 25-Jul-2016 End: 09-Jan-2017 Status: Inactive chlordiazePOXIDE hydrochloride 5 mg / clidinium bromide 2.5 mg oral capsule (8 sources) Anticholinergic, Benzodiazepine Start: 11-08-2019 End: 08-10-2023 take 1 capsule by mouth once daily at bedtime, then take 5 capsules by mouth once chlordiazePOXIDE- clidinium (LIBRAX, WITH CLINIDIUM,) 5-2.5 mg per capsule Indications: Functional bowel disorder Take 1 capsule by mouth daily at bedtime. 90 capsule 3 11/08/2019 08/10/2023 Discontinued Librax 5-2.5 MG Oral Capsule ; 1 two times daily (5-2.5 MG) Status: Inactive Comment on above: Take 1 capsule by [facility] daily at bedtime. Ethinyl Estradiol / norelgestromin (5 sources) Progestin, Estrogen Ortho Evra S tatus: Inactive Norgestimate-Ethinyl Estradiol (13 sources) Progestin, Estrogen Start: 09-13-2019 End: 09-13-2020 Norgestimate-Ethinyl Estradiol (Sprintec (28)) 0.25-35 mg-mcg tablet Discontinued 1 {tbl} PO DAILY September 13, 2019 12:00am September 13, 2020 1:59pm Start: 09-13-2019 End: 09-13-2020 take 1 tablet by mouth once daily Norgestimate-Ethinyl Estradiol (Sprintec (28)) 0.25-35 mg-mcg tablet Discontinued 1 TABLET PO DAILY September 13, 2019 12:00am September 13, 2020 1:59pm Start: 09-13-2019 End: 09-13-2020 take 1 tablet by mouth once daily Norgestimate-Ethinyl Estradiol (Sprintec (28)) 0.25-35 mg-mcg tablet Discontinued 1 TABLET PO DAILY September 12, 2019 11:00pm September 13, 2020 12:59pm Start: 08-12-2019 End: 09-17-2020 take 1 tablet by mouth once daily Sprintec 28 0.25-35 MG-MCG Oral Tablet ; 1 (one) Tablet daily for 0 days Quantity: 1 {Package} Refills: 11 Ordered: 17-Sep-2020 MARIA ESTHER Arias Start: 12-Aug-2019 End: 17-Sep-2020 Status: Inactive famotidine 40 mg oral tablet (5 sources) Histamine-2 Receptor Antagonist Start: 09-30-2022 End: 10-23-2022 take 1 tablet by mouth at bedtime Famotidine (Pepcid) 40 mg tablet Discontinued 40 mg PO AT BEDTIME September 30, 2022 12:00am October 23, 2022 8:27am ibuprofen 800 mg oral tablet (11 sources) Nonsteroidal Anti-inflammatory Drug Start: 06-10-2017 End: 09-13-2019 take 1 tablet by mouth three times daily as needed for pain Ibuprofen 800 MG tablet Discontinued 800 mg PO 3 TIMES DAILY NEEDED as needed for pain or cramping June 10, 2017 12:00am September 13, 2019 7:41pm End: 08-10-2023 take 1 tablet by mouth every six hours as needed ibuprofen (MOTRIN) 200 mg tablet Take 200 mg by mouth every 6 hours as needed. 08/10/2023 Discontinued Comment on above: Take 200 mg by mouth every 6 hours as needed. 24 hr mesalamine 375 mg extended release oral capsule (5 sources) Aminosalicylate take 1 capsule by mouth every twenty-four hours Apriso 0.375 GM Oral Capsule Extended Release 24 Hour ; 2 two times daily (0.375 GM) Status: Inactive oxyCODONE hydrochloride 5 mg oral tablet (8 sources) Opioid Agonist Start: 018 End: take 1 tablet by mouth every four hours as needed for pain Oxycodone 5 MG tablet Discontinued 5 mg PO EVERY 4 HOURS NEEDED as needed for Severe Pain (6-10/10) 04 09June 10, 2017 12:00am February 22, 2018 5:06pm pantoprazole 40 mg delayed release oral tablet (16 sources) Proton Pump Inhibitor Start: 020 End: take 1 tablet by mouth once daily Pantoprazole 40 mg tablet,delayed release (DR/EC) Discontinued 40 mg PO DAILY September 13, 2019 12:00am September 13, 2020 2:00pm Comment on above: Take 1 tablet by marianna th once daily. tranexamic acid 650 mg oral tablet (9 sources) Antifibrinolytic Agent Start: 023 End: 023 take 1 tablet by mouth every eight hours Tranexamic Acid 650 mg tablet Discontinued 650 mg PO Q8H 15 October 10, 2022 2:51pm October 23, 2022 8:28am Problems Active Problems Problem Classification Problem Date Documented Da te Episodic/Chronic Abdominal pain (20 sources) Pain in pelvis; Translations: [Pelvic and perineal pain] 09-13-2019 Episodic Conditions associated with dizziness or vertigo (1 source) Dizziness; Translations: [Dizziness and giddiness] 06-04-2023 Episodic Disorders of lipid metabolism (16 sources) Hyperlipidemia; Translations: [Hyperlipidemia, unspecified] Onset: 01-23-2024 09-13-2020 Chronic Esophageal disorders (17 sources) Esophageal reflux; Translations: [Gastroesophageal reflux disease] Onset: 01-23-2024 09-18-2021 Chronic Heart valve disorders (20 sources) Myxoid transformation of mitral valve; Translations: [Nonrheumatic mitral (valve) prolapse] Onset: 01-23-2024 09-13-2019 Chronic Inflammatory diseases of female pelvic organs (9 sources) Inflammation of cervix; Translations: [Inflammatory disease of cervix uteri] 04-02-2022 Episodic Comment on above: friable. Neg GCC. Hx cryo for this. Rx doxyclinically improved. Influenza (1 source) Influenza; Translations: [Influenza due to unidentified influenza virus with other respiratory manifestations] 04-12-2024 Episodic Menstrual disorders (20 sources) Irregular periods; Translations: [Irregular menstruation, unspecified] Onset: 01-23-2024 09-17-2020 Chronic Nonspecific chest pain (13 sources) Chest pain; Translations: [Chest pain, unspecified] 09-14-2019 Episodic Other connective tissue disease (1 source) Muscle pain; Translations: [Myalgia, unspecified site] 06-04-2023 Episodic Other female genital disorders (9 sources) Abnormal uterine bleeding; Translations: [Abnormal uterine and vaginal bleeding, unspecified] 03-20-2022 Chronic Comment on above: EMB negative 2022; P AP neg 2022. Other female genital disorders (7 sources) Abnormal uterine and vaginal bleeding, unspecified; Translations: [Unspecified disorders of menstruation and other abnormal bleeding from female genital tract] 03-20-2022 Chronic Other female genital disorders (8 sources) Cervical discharge; Translations: [Other specified noninflammatory disorders of cervix uteri] 03-20-2022 Episodic Other female genital disorders (3 sources) Other specified noninflammatory disorders of cervix uteri; Translations: [Leukorrhea, not specified as infective] 03-20-2022 Episodic Other gastrointestinal disorders (20 sources) Irritable bowel syndrome; Translations: [Irritable bowel syndrome without diarrhea] Onset: 01-23-2024 09-18-2021 Chronic Other injuries and conditions due to external causes (2 sources) Injury of left elbow region; Translations: [Unspecified injury of left elbow, initial encounter] 05-11-2024 Episodic Other injuries and conditions due to external causes (1 source) Unspecified injury of left elbow, initial encounter; Translations: [Elbow injury, left, initial encounter] Onset: 05-11-2024 Episodic Other lower respiratory disease (2 sources) Cough; Translations: [Cough, unspecified type] 08-10-2023 Episodic Other lower respiratory disease (3 sources) Cough; Translations: [Acute cough] 01-23-2024 Episodic Other non-traumatic joint disorders (10 sources) Shoulder pain; Translations: [Pain in unspecified shoulder] 09-23-2018 Episodic Other non-traumatic joint disorders (2 sources) Pain of left wrist; Translations: [Pain in left wrist] 09-07-2023 Episodic Other nutritional; endocrine; and metabolic disorders (10 sources) Obesity; Translations: [Obesity, unspecified] 09-18-2021 Chronic Other nutritional; endocrine; and metabolic disorders (10 sources) Overweight in adulthood with body mass index of 25 or more but less than 30; Translations: [Body mass index (BMI) 26.0-26.9, adult] 09-23-2018 Episodic Other and delivery including normal (1 source) Encounter for supervision of normal , unspecified, unspecified trimester; Translations: [Encounter for supervision of normal , unspecified, unspecified trimester] Onset: 07-25-2024 Episodic Other skin disorders (15 sources) Acne; Translations: [Acne, unspecified] 09-18-2021 Episodic Other upper respiratory disease (1 source) Seasonal allergic rhinitis; Translations: [Other seasonal allergic rhinitis] 06-25-2024 Chronic Other upper respiratory disease (1 source) Other seasonal allergic rhinitis; Translations: [Seasonal allergic rhinitis, unspecified trigger] Onset: 06-25-2024 Chronic Other upper respiratory disease (1 source) Nasal congestion; Translations: [Nasal congestion] 08-10-2023 Episodic Other upper respiratory infections (1 source) Chronic sinusitis; Translations: [Chronic sinusitis, unspecified] 01-17-2024 Chronic Other upper respiratory infections (3 sources) Upper respiratory infection; Translations: [Acute upper respiratory infection, unspecified] Onset: 06-25-2024 02-04-2024 Episodic Otitis media and related conditions (1 source) Finding of fluid behind tympanic membrane; Translations: [Unspecified nonsuppurative otitis media, bilateral] 06-04-2023 Episodic Ovarian cyst (10 sources) Cyst of bilateral ovaries; Translations: [Unspecified ovarian cyst, right side] 09-17-2020 Episodic Residual codes; unclassified (20 sources) FH: Cardiovascular disease; Translations: [Family history of ischemic heart disease and other diseases of the circulatory system] 09-13-2020 Episodic Comment on above: Maternal gma at age 46 (massive) and mom at age 47. Residual codes; unclassified (15 sources) Family history of malignant melanoma; Translations: [Family history of malignant neoplasm of other organs or systems] 09-18-2021 Episodic Spondylosis; intervertebral disc disorders; other back problems (6 sources) Lumbar facet joint pain; Translations: [Spondylosis without myelopathy or radiculopathy, lumbar region] 10-23-2022 Chronic Spondylosis; intervertebral disc disorders; other back problems (20 sources) Low back pain; Translations: [Low back pain] Onset: 01-26-2014 Resolved: 11-07-2014 10-23-2022 Episodic Unclassified (4 sources) Follow up for chronic condition - The patient is here for follow-up of GERD and other condition(s) (IBS.). The patient always takes the prescribed medications. No side effects noted. The patient engages in regular exercise program 3-5 times per week. The patient's dietary compliance is good with close adherance to recommendations. The patient states that breathing effort is stable, there is no recent angina or dyspnea, there are no vision changes or weakness, they are still having trouble sleeping (got a puppy) and headaches have been noticed occasionally. Note for "Chronic condition follow-up": She is still having flare ups with her IBS- was just started on protonix. 08-12-2019 Unclassified (4 sources) [ADDITIONAL REASON] Well adult female - The patient feels well with no complaints, has good energy level and is sleeping well. The first day of the last menstrual period was : (08/02/2019. Said that she is usually regular but this past time she bleed for a week and half before having her regular period. Has been feeling nauseated also. But has started new vitamins.). The current method of contraception is: oral contraceptives. The patient has a balanced diet and takes supplemental vitamins. The patient exercises weekly (5-7 x a wk). The patient sleeps 6 hours per night. 08-12-2019 Unclassified (5 sources) Well adult female - The patient feels well with no complaints, has good energy level and is sleeping poorly (Pt states that many nights she is restless during the night.). The first day of the last menstrual period was : (05/25/2016- 7; has had bleeding 5 times since). The current method of contraception is: oral contraceptives (Pt states that she is not sexually active, but uses the transdermal patch for stomach pain and acne.). The patient has a balanced diet and takes no supplemental vitamins & iron. The patient exercises daily. The patient sleeps 6 hours per night. Note for "Well adult female": Was due in April for pap smear. 07-25-2016 Unclassified (1 source) Well adult female - The patient feels well with no complaints, has good energy level and is sleeping well. The first day of the last menstrual period was : (08/02/2019. Said that she is usually regular but this past time she bleed for a week and half before having her regular period. Has been feeling nauseated also. But has started new vitamins.). The current method of contraception is: oral contraceptives. The patient has a balanced diet and takes supplemental vitamins. The patient exercises weekly (5-7 x a wk). The patient sleeps 6 hours per night. 08-12-2019 Unclassified (1 source) [ADDITIONAL REASON] Follow up for chronic condition - The patient is here for follow-up of GERD and other condition(s) (IBS.). The patient always takes the prescribed medications. No side effects noted. The patient engages in regular exercise program 3-5 times per week. The patient's dietary compliance is good with close adherance to recommendations. The patient states that breathing effort is stable, there is no recent angina or dyspnea, there are no vision changes or weakness, they are still having trouble sleeping (got a puppy) and headaches have been noticed occasionally. Note for "Chronic condition follow-up": She is still having flare ups with her IBS- was just started on protonix. 08-12-2019 Unclassified (1 source) Acute cough; Translations: [Acute cough] Onset: 01-23-2024 Unclassified (1 source) Cough, unspecified type; Translations: [Cough, unspecified type] Onset: 08-10-2023 Past or Other Problems Problem Classification Problem Date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 once daily for 3 days, THEN 2 tablets once daily for 3 days, THEN 1 tablet once daily for 1 day. Take with food.. Medications Discontinued During This Encounter Prescriptions - Alosetron HCl 0.5 mg tablet (Discontinued) alosetron ALOSETRON HCL 0.5 MG TABS 1 tablet daily (more content not included)... Normal [facility] XR CHEST 2V FRONTAL/LATon XR CHEST 2V FRONTAL/LAT * * *Final Report* * * DATE OF EXAM: Aug 10 2023 2:01PM WOX [id number] - XR CHEST 2V FRONTAL/LAT / PROCEDURE REASON: Cough, unspecified type * * * * Physician Interpretation * * * * EXAMINATION: CHEST RADIOGRAPH (2 VIEW FRONTAL and LATERAL) CLINICAL HISTORY: Cough, unspecified type MQ: XC2_6 EXAM DATE/TIME: 08/10/2023 2:01 PM COMPARISON: Chest x-ray on 11/28/2014 RESULT: Lines, tubes, and devices: None. Lungs and pleura: No consolidation. No lung mass. No pleural effusion. No pneumothorax. Cardiomediastinal silhouette: Normal cardiomediastinal silhouette. Bones and soft tissues: Unremarkable. IMPRESSION: No acute radiographic abnormality. 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: [employer]O Transcribe Date/Time: Aug 10 2023 2:28P Dictated by : NYASIA SANDERS MD This examination was interpreted and the report reviewed and electronically signed by: NYASIA SANDERS MD on Aug 10 2023 2:29PM EST [id number] Normal [facility] XR Chest PA and Lateralon IMPRESSION: No acute radiographic abnormality. 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: [facility] Transcribe Date/Time: Aug 10 2023 2:28P Dictated by : NYASIA SANDERS MD This examination was interpreted and the report reviewed and electronically signed by: NYASIA SANDERS MD on Aug 10 2023 2:29PM EST DIVISION OF RADIOLOGY * * *Final Report* * * DATE OF EXAM: Aug 10 2023 2:01PM WOX 5291 - XR CHEST 2V FRONTAL/LAT / PROCEDURE REASON: Cough, unspecified type * * * * Physician Interpretation * * * * EXAMINATION: CHEST RADIOGRAPH (2 VIEW FRONTAL & LATERAL) CLINICAL HISTORY: Cough, unspecified type MQ: XC2_6 EXAM DATE/TIME: 08/10/2023 2:01 PM COMPARISON: Chest x-ray on 11/28/2014 RESULT: Lines, tubes, and devices: None. Lungs and pleura: No consolidation. No lung mass. No pleural effusion. No pneumothorax. Cardiomediastinal silhouette: Normal cardiomediastinal silhouette. Bones and soft tissues: Unremarkable. DIVISION OF RADIOLOGY Provider, [facility] - 08/10/2023 * * *Final Report* * * DATE OF EXAM: Aug 10 2023 2:01PM WOX 5291 - XR CHEST 2V FRONTAL/LAT / PROCEDURE REASON: Cough, unspecified type * * * * Physician Interpretation * * * * EXAMINATION: CHEST RADIOGRAPH (2 VIEW FRONTAL & LATERAL) CLINICAL HISTORY: Cough, unspecified type MQ: XC2_6 EXAM DATE/TIME: 08/10/2023 2:01 PM COMPARISON: Chest x-ray on 11/28/2014 RESULT: Lines, tubes, and devices: None. Lungs and pleura: No consolidation. No lung mass. No pleural effusion. No pneumothorax. Cardiomediastinal silhouette: Normal cardiomediastinal silhouette. Bones and soft tissues: Unremarkable. IMPRESSION IMPRESSION: No acute radiographic abnormality. 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: [employer] Transcribe Date/Time: Aug 10 2023 2:28P Dictated by : NYASIA SANDERS MD This examination was interpreted and the report reviewed and electronically signed by: NYASIA SANDERS MD on Aug 10 2023 2:29PM EST [facility] Radiology Study observation (narrative) [facility] XR Chest PA and LateralOrder ed By: [facility] Provider on 08-10-2023 [facility] UA DIP, URINE (POC)on 2023 BILIRUBIN UA (POCT) Negative Negative Fausto [facility] CLARITY UA (POCT) [facility] COLOR UA (POCT) Yellow [facility] GLUCOSE UA (POCT) Negative Negative mg/dL [facility] Hemoglobin Ql (U) Negative Negative [facility] KETONE UA (POCT) Negative Negative mg/dL [facility] LEUKOCYTES UA (POCT) Negative Negative [facility] NITRITE UA (POCT) Negative Negative [facility] PH UA (POCT) 5.5 4.5 - 8.0 [facility] Protein Ql (U) Negative Negative mg/dL [facility] SPECIFIC GRAVITY UA (POCT) 1.025 1.005 - 1.030 [facility] UROBILINOGEN UA (POCT) 0.2 E.U./dL Liv l E.U./dL [facility] Basophil percentageOrdered B y: Amairani Mendy on 12-08-2022 Bilirubin [Mass/Vol] 0.20 mg/dL 0.20-1.00 [facility] Comment on above: For patients on eltr ombopag therapy, use of Dimension [facility] TBIL is not recommended. Cholesterol [Mass/Vol] 138 mg/dL <200 [facility] Comment on above: <200 mg/dL Desirable 200-240 mg/dL Borderline >240 mg/dL High Risk Protein [Mass/Vol] 7.0 g/dL 6.4-8.2 [facility] Triglyceride [Mass/Vol] 44 mg/dL <199 [facility] Comment on above: The drugs N-Acetylcy steine and Metamizole may falsely depress this assay.Serum Triglycerides Reference Interval Normal <150 mg/dL Borderline high 150 - 199 mg/dL High 200 - 499 mg/dL Very High > or = 500 mg/dL Direct bilirubinOrdered By: Amairani Brooke on 12-08-2022 Bilirubin.direct [Mass/Vol] 0.08 mg/dL 0.00-0.30 [facility] Laboratory - Chemistry and C hemistry - challengeOrdered By: Amairani Brooke on 12-08-2022 ALP [Catalytic activity/Vol] 36 U/L 45-117 [facility] ALT [Catalytic activity/Vol] 25 U/L 13-56 [facility] Globulin (S) [Mass/Vol] 3.7 g/dL 2.2-4.2 [facility] Serum or plasma albumin frandy urement (mass/volume)Ordered By: Amairani Brooke on 12-08-2022 Albumin [Mass/Vol] 3.3 g/dL 3.2-5.0 [facility] Serum or plasma cholesterol in HDL measurement (mass/volume)Ordered By: Amairani Brooke on 12-08-2022 Cholesterol in HDL [Mass/Vol] 58 mg/dL >40 [facility] Comment on above: The drugs N-Acetylcy steine and Metamizole may falsely depress this assay. Reference Range HDL <40 mg/dL Low HDL Cholesterol HDL >or= 60 mg/dL High HDL Cholesterol Serum or plasma cholesterol in VLDL measurement (mass/volume)Ordered By: Amairani Brooke on 12-08-2022 Cholesterol in VLDL [Mass/Vol] 9 mg/dL 5-40 [facility] Serum or plasma low density lipoprotein (LDL) cholesterol measurement (mass/volume)Ordered By: Amairani Brooke on 12-08-2022 Cholesterol in LDL [Mass/Vol] 71 mg/dL 0-130 [facility] Thin prep Papanicolaou smear with manual screeningOrdered By: Amairani Brooke on 12-08-2022 Thin prep Papanicolaou smear with manual screening 15 U/L 15-37 [facility] Gram stain for investigation of transfusion reactionOrdered By: Kiki Desir on 10-10-2022 Microscopic observation Gram stain Nom (Unsp spec) [facility] Microscopic observation Gram stain Nom (Unsp spec) [facility] No Panel Informationon 10-10 POC Bacterial Vaginitis (Rapid) Negative [facility] Thin prep Papanicolaou smear with manual screeningOrdered By: Kiki Desir on 10-10-2022 Genital Culture Streptococcus agalac tiae (B) [facility] Genital Culture Streptococcus agalac tiae (B) [facility] Absolute lymphocyte countOrd ered By: Shirin Macdonald on 09-30-2022 Lymphocytes Auto (Unsp spec) [#/Vol] 1.88 10*3/uL 0.83-4.51 [facility] Basophil percentageOrdered B y: Shirin Macdonald on 09-30-2022 Basophils/100 WBC (Bld) 0.3 % 0-1 [facility] Eosinophils/100 WBC (Bld) 0.2 % 0-5 [facility] Neutrophils (Bld) [#/Vol] 6.7 10*3/uL 2.0-7.7 [facility] Neutrophils/100 WBC (Bld) 73.5 % 47-70 [facility] WBC (Bld) [#/Vol] 9.1 10*3/uL 4.4-11.0 [facility] Blood erythrocytes count (nu mber/volume)Ordered By: Shirin Macdonald on 09-30-2022 RBC (Bld) [#/Vol] 4.35 10*6/uL 4.2-5.4 [facility] Blood hemoglobin measurement (mass/volume)Ordered By: Shirin Macdonald on 09-30-2022 Hemoglobin (Bld) [Mass/Vol] 13.2 g/dL 12.0-15.0 [facility] Blood lymphocytes/100 leukoc ytesOrdered By: Shirin Macdonald on 09-30-2022 Lymphocytes/100 WBC (Bld) 20.8 % 19-41 [facility] Blood monocytes/100 leukocyt esOrdered By: Shirin Macdonald on 09-30-2022 Monocytes/100 WBC (Bld) 4.9 % 0-10 [facility] Blood platelet mean volumeOr dered By: Shirin Macdonald on 09-30-2022 Platelet mean volume (Bld) [Entitic vol] 11.7 fL 6.2-12.0 [facility] Determination of erythrocyte mean corpuscular volume (MCV)Ordered By: Shirin Macdonald on 09-30-2022 MCV (RBC) [Entitic vol] 90.3 fL 81-99 [facility] Hematocrit Auto (Bld) [Volum e fraction]Ordered By: Shirin Macdonald on 09-30-2022 Hematocrit (Bld) [Volume fraction] 39.3 % 37-47 [facility] Laboratory - Chemistry and C hemistry - challengeOrdered By: Shirin Macdonald on 09-30-2022 HCG ( test) Ql (U) Negative [facility] Comment on above: Very dilute urine sp ecimens, as indicated by a low specificgravity, may not contain customer counter representative levels of hCG. If is still suspected, a first morning urinespecimen should be collected 48 hours later and tested. Laboratory - Hematology and Cell countsOrdered By: Shirin Macdonald on 09-30-2022 Erythrocyte distribution width (RBC) [Entitic vol] 40.1 fL 35.1-43.9 [facility] Erythrocyte distribution width (RBC) [Ratio] 12.3 % 11.6-14.6 [facility] Immature granulocytes/100 WBC (Bld) 0.300 % 0.0-0.9 [facility] Comment on above: IG% - Immature Granu locytes (promyelocytes, myelocytes and metamyelocytes) > 1% indicates that a LEFT SHIFT is Present. MCH (RBC) [Entitic mass] 30.3 pg 27.0-32.0 [facility] Nucleated RBC/100 WBC (Bld) [Ratio] 0 % 0-5 [facility] MCHC Auto (RBC) [Mass/Vol]Or dered By: Shirin Macdonald on 09-30-2022 MCHC (RBC) [Mass/Vol] 33.6 g/dL 32-36 [facility] Platelets bldOrdered By: Danielle Macdonald on 09-30-2022 Platelets (Bld) [#/Vol] 196 10*3/uL 150-450 [facility] MR LUMBAR SP WO CONTRASTon 0 08-04-2022 MR LUMBAR SP [facility] [address] [place], [place] [address] Patient: VERONICA CALVO Phone#: : 1995 Age: 27 Gender: F Pt. Type: Out Account: [id number] Location: Ordering: JOHN MACHADO Exam Date: 08/04/2022/11:00 Family Phys: Charge Code: 366840 Physician: [place] Order #: [id number] Dose#: PROCEDURE: MRI LUMBAR SPINE WITHOUT CONTRAST COMPARISON: None. INDICATIONS: Radiculopathy TECHNIQUE: A variety of imaging planes and parameters were utilized for visualization of suspected pathology. FINDINGS: PARASPINAL AREA: Normal with no visible mass. BONES: No fracture, pars defect, or osseous lesion. CORD/CAUDA EQUINA: Normal caliber, contour, and signal intensity. LUMBAR DISC LEVELS: L1-L2: No significant disc/facet abnormality, spinal stenosis, or foraminal stenosis. L2-L3: Mild annular bulging of the disc is present. There is mild foraminal narrowing bilaterally. L3-L4: No significant disc/facet abnormality, spinal stenosis, or foraminal stenosis. L4-L5: No significant disc/facet abnormality, spinal stenosis, or foraminal stenosis. L5-S1: No significant disc/facet abnormality, spinal stenosis, or foraminal stenosis. CONCLUSION: 1. Mild annular disc bulging is present at the L2-3 level. There is mild bilateral foraminal narrowing. Dictated by: Angelica Medellin MD on 08/04/2022 at 13:13 Approved by: Angelica Medellin MD on 08/04/2022 at 13:17 Normal [facility] Absolute lymphocyte countOrd ered By: Kiki Desir on 04-09-2022 Lymphocytes Auto (Unsp spec) [#/Vol] 2.16 10*3/uL 0.83-4.51 [facility] Basophil percentageOrdered B y: Kiki Desir on 04-09-2022 Basophils/100 WBC (Bld) 0.5 % 0-1 [facility] Eosinophils/100 WBC (Bld) 2.2 % 0-5 [facility] Neutrophils (Bld) [#/Vol] 3.7 10*3/uL 2.0-7.7 [facility] Neutrophils/100 WBC (Bld) 58.3 % 47-70 [facility] WBC (Bld) [#/Vol] 6.4 10*3/uL 4.4-11.0 [facility] Blood erythrocytes count (nu mber/volume)Ordered By: Kiki Desir on 04-09-2022 RBC (Bld) [#/Vol] 4.77 10*6/uL 4.2-5.4 [facility] Blood hemoglobin measurement (mass/volume)Ordered By: Kiki Desir on 04-09-2022 Hemoglobin (Bld) [Mass/Vol] 14.6 g/dL 12.0-15.0 [facility] Blood lymphocytes/100 leukoc ytesOrdered By: Kiki Desir on 04-09-2022 Lymphocytes/100 WBC (Bld) 33.8 % 19-41 [facility] Blood monocytes/100 leukocyt esOrdered By: Kiki Desir on 04-09-2022 Monocytes/100 WBC (Bld) 5.2 % 0-10 [facility] Blood platelet mean volumeOr dered By: Kiki Desir on 04-09-2022 Platelet mean volume (Bld) [Entitic vol] 10.4 fL 6.2-12.0 [facility] Determination of erythrocyte mean corpuscular volume (MCV)Ordered By: Kiki Desir on 04-09-2022 MCV (RBC) [Entitic vol] 87.4 fL 81-99 [facility] Hematocrit Auto (Bld) [Volum e fraction]Ordered By: Kiki Desir on 04-09-2022 Hematocrit (Bld) [Volume fraction] 41.7 % 37-47 [facility] Laboratory - Chemistry and C hemistry - challengeOrdered By: Kiki Desir on 04-09-2022 Free T4 [Mass/Vol] 0.96 ng/dL 0.76-1.46 [facility] Laboratory - Hematology and Cell countsOrdered By: Kiki Desir on 04-09-2022 Erythrocyte distribution width (RBC) [Entitic vol] 39.3 fL 35.1-43.9 [facility] Erythrocyte distribution width (RBC) [Ratio] 12.2 % 11.6-14.6 [facility] Immature granulocytes/100 WBC (Bld) 0.000 % 0.0-0.9 [facility] Comment on above: IG% - Immature Granu locytes (promyelocytes, myelocytes and metamyelocytes) > 1% indicates that a LEFT SHIFT is Present. MCH (RBC) [Entitic mass] 30.6 pg 27.0-32.0 [facility] Nucleated RBC/100 WBC (Bld) [Ratio] 0 % 0-5 [facility] MCHC Auto (RBC) [Mass/Vol]Or dered By: Kiki Desir on 04-09-2022 MCHC (RBC) [Mass/Vol] 35.0 g/dL 32-36 [facility] No Panel InformationOrdered By: Kiki Desir on 04-09-2022 Follicle Stimulating Hormone 7.1 mIU/mL [facility] Comment on above: NORMAL REFERENCE RAN [facility] FEMALE FOLLICULAR 2.3 - 12.6 mIU/mL MID-CYCLE PEAK 5.2 - 17.5 mIU/mL LUTEAL 1.7 - 12.9 mIU/mL POST-MENOPAUSAL ON MHT 5.9 - 72.8 mIU/mL NOT ON MHT 12.7 - 132.2 mlU/mL MALE 0.7 - 10.8 mIU/mL Luteinizing Hormone 5.3 mIU/mL [facility] Comment on above: NORMAL REFERENCE RAN [facility] FEMALE FOLLICULAR 1.9 - 26.2 mIU/mL MID-CYCLE PEAK 22.8 - 76.1 mIU/mL LUTEAL 0.6 - 16.6 mIU/mL POST-MENOPAUSAL ON MHT 1.1 - 52.4 mIU/mL NOT ON MHT 8.6 - 61.8 mIU/mL MALE 1.2 - 10.6 mIU/mL Thyroid Stimulating Hormone (TSH) 2.23 uIU/mL 0.358-3.74 [facility] Platelets bldOrdered By: Gina Desir on 04-09-2022 Platelets (Bld) [#/Vol] 209 10*3/uL 150-450 [facility] Whole blood hemoglobin A1c/t otal hemoglobin ratio (mass fraction)Ordered By: Kiki Desir on 04-09-2022 HbA1c (Bld) [Mass fraction] 4.9 % 3.8-5.6 [facility] Comment on above: Normal < 5.7 % Predi abetic 5.7 - 6.4 % Diabetic >or= 6.5 % Please note range changes. Cervical or vagninal specime n microscopic examination by cytology stain (reported asOrdered By: Kiki Desir on 03-20-2022 Cytology report Cyto stain Doc (Cvx/Vag) Comment . [facility] Comment on above: The Pap smear is a s creening test designed to aid in thedetection of premalignant and malignant conditions of theuterine cervix. It is not a diagnostic procedure andshould not be used as the sole means of detecting cervicalcancer. Both false-positive and false-negative reports dooccur. Chlamydia trachomatis rRNA d etection by probe and target amplification methodOrdered By: Kiki Desir on 03-20-2022 C. trachomatis rRNA STELLA+probe Ql (Unsp spec) Negative Negative [facility] Laboratory - CytologyOrdered By: Kiki Desir on 03-20-2022 Food Adviser Cyto stain Nom (Cvx/Vag) [ID] Comment . [facility] Comment on above: Milan Bateman totechnologist (ASCP) Laboratory - Microbiology an d Antimicrobial susceptibilityOrdered By: Kiki Desir on 03-20-2022 N. gonorrhoeae DNA STELLA+probe Ql (Unsp spec) Negative Negative [facility] Comment on above: Performed at: =[address] [id number] Director: Cindy Mendez MD, Phone: [phone] Laboratory - Miscellaneous t estsOrdered By: Kiki Desir on 03-20-2022 Service comment (Unsp spec) [Interp] Comment . [facility] Comment on above: This liquid based Th inPrep(R) pap test was screened withthe use of an image guided system. Service comment (Unsp spec) [Interp] . . [facility] No Panel InformationOrdered By: Kiki Desir on 03-20-2022 Human Papillomavirus Screen Comment . [facility] Comment on above: The HPV DNA reflex c mariama were not met with this specimenresult therefore, no HPV testing was performed.Performed at: [facility] [id number] [place], [place] [id number] Director: Jevon Marrero MD, Phone: [phone] at: [facility] - [facility] [address] [id number] Director: Cindy Mendez MD, Phone: [phone] Pathology report final diagnosis Narrative Comment . [facility] Comment on above: NEGATIVE FOR INTRAEP ITHELIAL LESION OR MALIGNANCY. THINPREP PAP REFLEX HPV mRNA E6/E7on 08-16-2019 CLINICAL INFORMATION: Normal [facility] Comment on above: Result Comment: Rout ine exam Oral contraceptives Performed By: #### 9 0932 #### [facility]-[address], [address] [place] [address] Tube Trailer Filler: Jovani Collins MD COMMENT Normal [facility] Comment on above: Result Comment: EXPL ANATORY NOTE: The Pap is a screening test for cervical cancer. It is not a diagnostic test and is subject to false negative and false positive results. It is most reliable when a satisfactory sample, regularly obtained, is submitted with relevant clinical findings and history, and when the Pap result is evaluated along with historic and current clinical information. Performed By: #### 9 0932 #### [facility]-[place] [address] Tube Trailer Filler: Jovani Collins MD EMERGENCY NURSE: Normal [facility] Comment on above: Result Comment: ISABEL CT(ASCP) CT screening location: [place] [address]. Performed By: #### 9 0932 #### [facility] [address] Tube Trailer Filler: Jovani Collins MD INTERPRETATION/RESULT: Normal [facility] Comment on above: Result Comment: Nega tive for intraepithelial lesion or malignancy. Performed By: #### 9 0932 #### [facility]-[address], [address] [place] [address] Tube Trailer Filler: Jovani Collins MD LMP: Normal [facility] Comment on above: Result Comment: 08/01 Performed By: #### 9 0932 #### [facility]-[address], [address] [place] [address] Tube Trailer Filler: Jovani Collins MD PREV. BX: None given Normal [facility] Comment on above: Performed By: #### 9 0932 #### [facility]-[address], [address] [place] [address] Tube Trailer Filler: Jovani Collins MD PREV. PAP: Normal [facility] Comment on above: Result Comment: NEGA TIVE Performed By: #### 9 0932 #### [facility]-[address], [address] [place] [address] Tube Trailer Filler: Jovani Collins MD REVIEW EMERGENCY NURSE: Normal [facility] Comment on above: Result Comment: NNO, CT(ASCP) CT screening location: [place] [address]. Performed By: #### 9 0932 #### [facility]-[address], [address] [place] [address] Tube Trailer Filler: Jovani Collins MD SOURCE: Normal [facility] Comment on above: Result Comment: Cerv ix Performed By: #### 9 0932 #### [facility]-[address], [address] [place] [address] Tube Trailer Filler: Jovani Collins MD STATEMENT OF ADEQUACY: Normal [facility] Comment on above: Result Comment: Sati sfactory for evaluation. Endocervical/transformation zone component present. Performed By: #### 9 0932 #### [facility]-[address], [address] [place] [address] Tube Trailer Filler: Jovani Collins MD Laboratory - Chemistry and C hemistry - challengeon 08-15-2019 Albumin [Mass/Vol] 3.8 g/dL Normal 3.4 - 4.8 g/dL [facility]. Work Phone: Albumin [Mass/Vol] 1.3 g/dL Normal 0.9 - 1.6 [facility]. Work Phone: ALP [Catalytic activity/Vol] 27 U/L Abnormal 38 - 126 U/L [facility].; [facility]. Work Phone: ALT [Catalytic activity/Vol] 15 U/L Normal 8 - 35 U/L [facility].; [facility]. Work Phone: Anion gap [Moles/Vol] 10 mmol/L Normal 10 - 2 0 mmol/L [facility].; [facility]. Work Phone: AST [Catalytic activity/Vol] 15 U/L Normal 13 - 39 U/L [facility].; [place] [employer] [facility], [employer]. Work Phone: Bilirubin [Mass/Vol] 0.5 mg/dL Normal 0.0 - 1 .5 mg/dL [facility].; [place] [employer] [facility]. Work Phone: Calcium [Mass/Vol] 9.3 mg/dL Normal 8.6 - 10. 2 mg/dL [facility].; [place] [employer] [facility]. Work Phone: Chloride [Moles/Vol] 103 mmol/L Normal 98 - 10 7 mmol/L [facility].; [place] [employer] [facility]. Work Phone: Cholesterol [Mass/Vol] 143 mg/dL Normal 0 - 2 00 mg/dL [facility].; [facility]. Cholesterol in HDL [Mass or moles/Vol] 45 mg/dL Normal 40 - 60 mg/dL [facility].; [facility] Cholesterol in LDL [Mass/Vol] 78 mg/dL Normal 0 - 129 mg/dL [facility], [facility].; [place] [employer] [facility] Cholesterol.total/Chol esterol in HDL [Mass ratio] 3.2 {ratio} Normal 0.0 - 5.0 [facility].; [facility], [facility] CO2 [Moles/Vol] 27.4 mmol/L Normal 21.0 - 31.0 mmol/L [facility], [facility].; [facility], [facility]. Work Phone: Comprehensive metabolic 2000 panel CMP with eGFR Normal [facility]; [facility], [facility] Work Phone: Creatinine [Mass/Vol] 1.0 mg/dL Normal 0.6 - 1.2 mg/dL [facility].; [facility], [facility] Work Phone: GFR/1.73 sq M.predicted among blacks MDRD (S/P/Bld) [Vol rate/Area] mL/min/{1.73_m2} Normal 60 - 999 {ML/MINUTE } [facility], [facility].; [facility], [facility]. Work Phone: GFR/1.73 sq M.predicted MDRD (S/P/Bld) [Vol rate/Area] mL/min/{1.73_m2} Normal 60 - 999 {ML/MINUTE } [facility], [facility].; [facility], [facility]. Work Phone: Globulin (S) [Mass/Vol] 3.0 g/dL Normal 1.5 - 3.8 g/dL [facility].; [place] [employer] [facility], [facility]. Work Phone: Glucose [Mass/Vol] 86 mg/dL Normal 74 - 106 mg/dL [facility], [facility].; [place] [employer] [facility], [facility]. Work Phone: Lipid 1996 panel LIPID PROFILE Normal [facility], [facility].; [facility], [facility] Potassium [Moles/Vol] 3.8 mmol/L Normal 3.5 - 5.1 mmol/L [facility], [facility].; [facility], [facility]. Work Phone: Protein [Mass/Vol] 6.8 g/dL Normal 6.4 - 8.3 g/dL [facility]; [employer]. Work Phone: Sodium [Moles/Vol] 137 mmol/L Normal 136 - 145 mmol/L [facility] [employer]; [employer]. Work Phone: Triglyceride [Mass/Vol] 102 mg/dL Normal 0 - 150 mg/dL [place] [facility]; [employer] Urea nitrogen [Mass/Vol] 13 mg/dL Normal 6 - 20 mg/dL [place] [employer].; [employer]. Work Phone: Urea nitrogen/Creatinine [Mass ratio] 13 {ratio} Normal 0 - 30 {ratio} [place] Kleer; [employer]. Work Phone: No Panel Informationon 08-14 AGE 24 {years} Normal [place] Kleer; [employer]. Work Phone: Laboratory - Chemistry and C hemistry - challengeon 08-12-2019 Beta HCG ( test) Ql (U) Negative Normal [place] [facility].; [employer]. No Panel Informationon 08-11 [id number] SEE NOTE Normal [place] [facility].; [employer]. CLINICAL INFORMATION: SEE NOTE Normal [facility] [employer]. EMERGENCY NURSE: SEE NOTE Normal [place] [facility].; [employer]. INTERPRETATION/RESULT: SEE NOTE Normal [facility] [employer]. LMP: SEE NOTE Normal [place] [facility].; [employer]. PREV. BX: SEE NOTE Normal [place] [facility].; [employer]. PREV. PAP: SEE NOTE Normal [place] [facility].; [employer]. REVIEW EMERGENCY NURSE: SEE NOTE Normal [place] [facility].; [employer], [employer]. SOURCE: SEE NOTE Normal [place] [facility].; [employer]. STATEMENT OF ADEQUACY: SEE NOTE Normal [facility] [employer].; [employer]. Laboratory - Cytologyon 06-0 Microscopic observation Cyto stain Nom (Cvx) Normal [facility].; [facility] Vital Signs Date Time Vital Sign Value Performing Clinician Facility 06-25-2024 08:44-0400 Body mass index (BMI) [Ratio] 30.33 kg/m2 Thiago Rubi MD Work Phone: [facility] 06-25-2024 08:44-0400 Body temperature 97.3 [degF] Thiago Rubi MD Work Phone: [facility] 06-25-2024 08:44-0400 Body weight 74 kg Thiago Rubi MD Work Phone: [facility] 06-25-2024 08:44-0400 Diastolic blood pressure 70 mm[Hg] Thiago Rubi MD Work Phone: [facility] 06-25-2024 08:44-0400 Heart rate 82 /min Thiago Rubi MD Work Phone: [facility] 06-25-2024 08:44-0400 Respiratory rate 16 /min Thiago Rubi MD Work Phone: [facility] 06-25-2024 08:44-0400 SaO2% (BldA) [Mass fraction] 97 % Thiago Rubi MD Work Phone: [facility] 06-25-2024 08:44-0400 Systolic blood pressure 122 mm[Hg] Thiago Rubi MD Work Phone: [facility] 05-11-2024 09:02-0400 Body mass index (BMI) [Ratio] 30.33 kg/m2 Eryn White APRN.FACING SLITTER Work Phone: [facility] 05-11-2024 09:02-0400 Body temperature 98.01 [degF] Eryn White APRN.FACING SLITTER Work Phone: [facility] 05-11-2024 09:02-0400 Body weight 74 kg Eryn White APRN.FACING SLITTER Work Phone: [facility] 05-11-2024 09:02-0400 Diastolic blood pressure 78 mm[Hg] Eryn Praisler-Wood TAKE AWAY MAN.FACING SLITTER Work Phone: [facility] 05-11-2024 09:02-0400 Heart rate 87 /min Eryn Praisler-Wood TAKE AWAY MAN.FACING SLITTER Work Phone: [facility] 05-11-2024 09:02-0400 Respiratory rate 18 /min Eryn Praisler-Wood TAKE AWAY MAN.FACING SLITTER Work Phone: [facility] 05-11-2024 09:02-0400 SaO2% (BldA) [Mass fraction] 100 % Eryn Praisler-Wood TAKE AWAY MAN.FACING SLITTER Work Phone: [facility] 05-11-2024 09:02-0400 Systolic blood pressure 117 mm[Hg] Eryn Praisler-Wood TAKE AWAY MAN.FACING SLITTER Work Phone: [facility] 04-20-2024 09:14-0500 Body height 157.48 cm Vani Obando PA Work Phone: [facility] 04-20-2024 09:14-0500 Body mass index (BMI) [Ratio] 29.8 kg/m2 Vani Obando PA Work Phone: [facility] 04-20-2024 09:14-0500 Body weight 73.93 kg Vani Obando PA Work Phone: [facility] 04-20-2024 09:14-0500 Diastolic blood pressure 83 mm[Hg] Vani Obando PA Work Phone: [facility] 04-20-2024 09:14-0500 Heart rate 74 /min Vani Obando PA Work Phone: [facility] 04-20-2024 09:14-0500 Respiratory rate 18 /min Vani Obando PA Work Phone: [facility] 04-20-2024 09:14-0500 SaO2% (BldA) [Mass fraction] 98 % Vani Obando PA Work Phone: [facility] 04-20-2024 09:14-0500 Systolic blood pressure 120 mm[Hg] Vani Obando PA Work Phone: [facility] 04-12-2024 14:37-0500 Body mass index (BMI) [Ratio] 30.45 kg/m2 Sully Clutter PA-C Work Phone: [facility] 04-12-2024 14:37-0500 Body temperature 99.3 [degF] Sully Clutter PA-C Work Phone: [facility] 04-12-2024 14:37-0500 Body weight 74.3 kg Sully Clutter PA-C Work Phone: [facility] 04-12-2024 14:37-0500 Diastolic blood pressure 82 mm[Hg] Sully Clutter PA-C Work Phone: [facility] 04-12-2024 14:37-0500 Heart rate 82 /min Sully Clutter PA-C Work Phone: [facility] 04-12-2024 14:37-0500 Respiratory rate 18 /min Sully Clutter PA-C Work Phone: [facility] 04-12-2024 14:37-0500 SaO2% (BldA) [Mass fraction] 98 % Sully Clutter PA-C Work Phone: [facility] 04-12-2024 14:37-0500 Systolic blood pressure 130 mm[Hg] Sully Clutter PA-C Work Phone: [facility] 02-04-2024 12:32-0500 Body mass index (BMI) [Ratio] 31.68 kg/m2 John Shen APRN.FACING SLITTER Work Phone: [facility] 02-04-2024 12:32-0500 Body temperature 97.59 [degF] John Shen APRN.FACING SLITTER Work Phone: [facility] 02-04-2024 12:32-0500 Body weight 77.3 kg John Shen APRN.FACING SLITTER Work Phone: [facility] 02-04-2024 12:32-0500 Diastolic blood pressure 86 mm[Hg] [facility] TAKE AWAY MAN.FACING SLITTER Work Phone: [facility] 02-04-2024 12:32-0500 Heart rate 66 /min [facility] TA[facility]AY [facility].FACING SLITTER Work Phone: [facility] 02-04-2024 12:32-0500 Respiratory rate 18 /min [facility] TAKE AWAY MAN.FACING SLITTER Work Phone: [facility] 02-04-2024 12:32-0500 SaO2% (BldA) [Mass fraction] 100 % [facility] TAKE AWAY MAN.FACING SLITTER Work Phone: [facility] 02-04-2024 12:32-0500 Systolic blood pressure 124 mm[Hg] [facility] TAKE AWAY MAN.FACING SLITTER Work Phone: [facility] 01-23-2024 09:37-0500 Body mass index (BMI) [Ratio] 31.35 kg/m2 Urbano Moomaw TAKE AWAY MAN.FACING SLITTER Work Phone: [facility] 01-23-2024 09:37-0500 Body temperature 97.39 [degF] Urbano Moomaw TAKE AWAY MAN.FACING SLITTER Work Phone: [facility] 01-23-2024 09:37-0500 Body weight 76.5 kg Urbano Moomaw TAKE AWAY MAN.FACING SLITTER Work Phone: [facility] 01-23-2024 09:37-0500 Diastolic blood pressure 84 mm[Hg] Urbano Moomaw TAKE AWAY MAN.FACING SLITTER Work Phone: [facility] 01-23-2024 09:37-0500 Heart rate 81 /min Urbano Moomaw TAKE AWAY MAN.FACING SLITTER Work Phone: [facility] 01-23-2024 09:37-0500 Respiratory rate 20 /min Urbano Moomaw TAKE AWAY MAN.FACING SLITTER Work Phone: [facility] 01-23-2024 09:37-0500 SaO2% (BldA) [Mass fraction] 100 % Urbano Moomaw TAKE AWAY MAN.FACING SLITTER Work Phone: [facility] 01-23-2024 09:37-0500 Systolic blood pressure 121 mm[Hg] Urbano Moomaw TAKE AWAY MAN.FACING SLITTER Work Phone: [facility] 01-17-2024 13:36-0500 Body mass index (BMI) [Ratio] 30.65 kg/m2 [facility] TAKE AWAY MAN.FACING SLITTER Work Phone: [facility] 01-17-2024 13:36-0500 Body temperature 97.11 [degF] [facility] TAKE AWAY MAN.FACING SLITTER Work Phone: [facility] 01-17-2024 13:36-0500 Body weight 74.8 kg [facility] TAKE AWAY MAN.FACING SLITTER Work Phone: [facility] 01-17-2024 13:36-0500 Diastolic blood pressure 64 mm[Hg] [facility] TAKE AWAY MAN.FACING SLITTER Work Phone: [facility] 01-17-2024 13:36-0500 Heart rate 94 /min [facility] TAKE AWAY MAN.FACING SLITTER Work Phone: [facility] 01-17-2024 13:36-0500 Respiratory rate 16 /min [facility] TAKE AWAY MAN.FACING SLITTER Work Phone: [facility] 01-17-2024 13:36-0500 SaO2% (BldA) [Mass fraction] 99 % [facility] TAKE AWAY MAN.FACING SLITTER Work Phone: [facility] 01-17-2024 13:36-0500 Systolic blood pressure 108 mm[Hg] [facility] TAKE AWAY MAN.FACING SLITTER Work Phone: [facility] 01-07-2024 15:23-0500 Body mass index (BMI) [Ratio] 29.9 kg/m2 Vani WOODALL Work Phone: [facility] 01-07-2024 15:23-0500 Body weight 74.38 kg Vani WOODALL Work Phone: [facility] 01-07-2024 15:23-0500 Diastolic blood pressure 81 mm[Hg] Vani Obando PA Work Phone: [facility] 01-07-2024 15:23-0500 Systolic blood pressure 128 mm[Hg] Vani Obando PA Work Phone: [facility] 09-07-2023 16:01-0400 Body mass index (BMI) [Ratio] 30.9 kg/m2 John Shen TAKE AWAY MAN.FACING SLITTER Work Phone: [facility] 09-07-2023 16:01-0400 Body temperature 98.2 [degF] John Shen TAKE AWAY MAN.FACING SLITTER Work Phone: [facility] 09-07-2023 16:01-0400 Body weight 75.4 kg John Shen TAKE AWAY MAN.FACING SLITTER Work Phone: [facility] 09-07-2023 16:01-0400 Diastolic blood pressure 66 mm[Hg] John Shen TAKE AWAY MAN.FACING SLITTER Work Phone: [facility] 09-07-2023 16:01-0400 Heart rate 62 /min John Shen TAKE AWAY MAN.FACING SLITTER Work Phone: [facility] 09-07-2023 16:01-0400 Respiratory rate 21 /min John Shen TAKE AWAY MAN.FACING SLITTER Work Phone: [facility] 09-07-2023 16:01-0400 SaO2% (BldA) [Mass fraction] 99 % John Shen TAKE AWAY MAN.FACING SLITTER Work Phone: [facility] 09-07-2023 16:01-0400 Systolic blood pressure 114 mm[Hg] John Shen TAKE AWAY MAN.FACING SLITTER Work Phone: [facility] 08-10-2023 13:36-0400 Body mass index (BMI) [Ratio] 30.86 kg/m2 Thiago Rubi MD Work Phone: [facility] 08-10-2023 13:36-0400 Body temperature 98.4 [degF] Thiago Rubi MD Work Phone: [facility] 08-10-2023 13:36-0400 Body weight 75.3 kg Thiago Rubi MD Work Phone: [facility] 08-10-2023 13:36-0400 Diastolic blood pressure 78 mm[Hg] Thiago Rubi MD Work Phone: [facility] 08-10-2023 13:36-0400 Heart rate 69 /min Thiago Rubi MD Work Phone: [facility] 08-10-2023 13:36-0400 Respiratory rate 16 /min Thiago Rubi MD Work Phone: [facility] 08-10-2023 13:36-0400 SaO2% (BldA) [Mass fraction] 100 % Thiago Rubi MD Work Phone: [facility] 08-10-2023 13:36-0400 Systolic blood pressure 118 mm[Hg] Thiago Rubi MD Work Phone: [facility] 06-04-2023 16:25-0400 Body temperature 99.39 [degF] Eryn Praisler-Wood TAKE AWAY MAN.FACING SLITTER Work Phone: [facility] 06-04-2023 16:25-0400 Body weight 77.2 kg Eryn Praisler-Wood TAKE AWAY MAN.FACING SLITTER Work Phone: [facility] 06-04-2023 16:25-0400 Diastolic blood pressure 94 mm[Hg] Eryn Praisler-Wood TAKE AWAY MAN.FACING SLITTER Work Phone: [facility] 06-04-2023 16:25-0400 Heart rate 73 /min Eryn Praisler-Wood TAKE AWAY MAN.FACING SLITTER Work Phone: [facility] 06-04-2023 16:25-0400 Respiratory rate 18 /min Eryn Praisler-Wood TAKE AWAY MAN.FACING SLITTER Work Phone: [facility] 06-04-2023 16:25-0400 SaO2% (BldA) [Mass fraction] 100 % Eryn Praisler-Wood TAKE AWAY MAN.FACING SLITTER Work Phone: [facility] 06-04-2023 16:25-0400 Systolic blood pressure 134 mm[Hg] Erynsri White APRN.FACING SLITTER Work Phone: [facility] 11-28-2022 14:09-0400 Body height 157.48 cm PA Vani Obando PA Work Phone: [facility] 11-28-2022 14:09-0400 Body mass index (BMI) [Ratio] 30.5 kg/m2 PA Vani Obando PA Work Phone: [facility] 11-28-2022 14:09-0400 Body weight 75.74 kg PA Vani Obando PA Work Phone: [facility] 11-28-2022 14:09-0400 Diastolic blood pressure 77 mm[Hg] PA Vani Obando PA Work Phone: [facility] 11-28-2022 14:09-0400 Heart rate 65 /min PA Vani Obando PA Work Phone: [facility] 11-28-2022 14:09-0400 Respiratory rate 18 /min PA Vani Obando PA Work Phone: [facility] 11-28-2022 14:09-0400 SaO2% (BldA) [Mass fraction] 99 % PA Vnai Obando PA Work Phone: [facility] 11-28-2022 14:09-0400 Systolic blood pressure 123 mm[Hg] PA Vani Obando PA Work Phone: [facility] 10-23-2022 08:25-0400 Body mass index (BMI) [Ratio] 30.5 kg/m2 PA Vani Obando PA Work Phone: [facility] 10-23-2022 08:25-0400 Body weight 75.74 kg PA Vani Obando PA Work Phone: [facility] 10-10-2022 14:15-0400 Body mass index (BMI) [Ratio] 30.9 kg/m2 PA Vani Obando PA Work Phone: [facility] 10-10-2022 14:15-0400 Body weight 76.77 kg PA Vani Obando PA Work Phone: [facility] 10-10-2022 14:15-0400 Diastolic blood pressure 83 mm[Hg] PA Vani Obando PA Work Phone: [facility] 10-10-2022 14:15-0400 Systolic blood pressure 132 mm[Hg] PA Vani Obando PA Work Phone: [facility] 09-30-2022 17:31-0400 Diastolic blood pressure 73 mm[Hg] [facility] 09-30-2022 17:31-0400 Heart rate 65 /min [facility] 09-30-2022 17:31-0400 Respiratory rate 16 /min [facility] 09-30-2022 17:31-0400 SaO2% (BldA) [Mass fraction] 97 % [facility] 09-30-2022 17:31-0400 Systolic blood pressure 112 mm[Hg] [facility] 09-30-2022 12:25-0400 Body height 157.48 cm [facility] 09-30-2022 12:25-0400 Body mass index (BMI) [Ratio] 30.9 kg/m2 [facility] 09-30-2022 12:25-0400 Body temperature 98 [degF] [facility] 09-30-2022 12:25-0400 Body weight 76.68 kg [facility] 04-02-2022 13:53-0500 Body height 157.48 cm PA Vani Obando PA Work Phone: [facility] 04-02-2022 13:49-0500 Body mass index (BMI) [Ratio] 31.7 kg/m2 PA Vani Obando PA Work Phone: [facility] 04-02-2022 13:49-0500 Body weight 78.64 kg PA Vani Obando PA Work Phone: [facility] 04-02-2022 13:49-0500 Diastolic blood pressure 76 mm[Hg] PA Vani Obando PA Work Phone: [facility] 04-02-2022 13:49-0500 Systolic blood pressure 132 mm[Hg] PA Vani Obando PA Work Phone: [facility] 03-20-2022 07:29-0500 Body height 157.48 cm PA Vani Obando PA Work Phone: [facility] 03-20-2022 07:25-0500 Body mass index (BMI) [Ratio] 31.1 kg/m2 PA Vani Obando PA Work Phone: [facility] 03-20-2022 07:25-0500 Body weight 77.11 kg PA Vani Obando PA Work Phone: [facility] 03-20-2022 07:25-0500 Diastolic blood pressure 87 mm[Hg] PA Vani Obando PA Work Phone: [facility] 03-20-2022 07:25-0500 Heart rate 83 /min PA Vani Obando PA Work Phone: [facility] 03-20-2022 07:25-0500 Systolic blood pressure 127 mm[Hg] PA Vani Obando PA Work Phone: [facility] 09-18-2021 09:27-0400 Body height 157.48 cm Amairani Cheng MA [facility], [facility]. 09-18-2021 09:27-0400 Body mass index (BMI) [Ratio] 31.64 kg/m2 Amairani Cheng MA [facility], [facility]. 09-18-2021 09:27-0400 Body surface area Derived from formula 1.8 m2 Amairani Cheng MA [facility], [facility]. 09-18-2021 09:27-0400 Body weight 78.47 kg Amairani Cheng MA [facility], [facility].; [facility]. 09-18-2021 09:27-0400 Diastolic blood pressure 72 mm[Hg] Amairani Cheng [facility].; [employer]. Comment on above: Patient Position: Sitting; Cuff Location : Left Arm; Cuff Size: Standard 09-18-2021 09:27-0400 Heart rate 69 /min Amairani Cheng [facility] [employer]. Comment on above: Pattern: Regular 09-18-2021 09:27-0400 Systolic blood pressure 115 mm[Hg] Amairani Cheng MA [place] [facility] [facility] [employer]. Comment on above: Patient Position: Sitting; Cuff Location : Left Arm; Cuff Size: Standard 09-17-2020 14:05-0400 Body height 157.48 cm Carmen Arias LPN [facility].; [employer]. 09-17-2020 14:05-0400 Body mass index (BMI) [Ratio] 30.36 kg/m2 [facility].; [employer]. 09-17-2020 14:05-0400 Body surface area Derived from formula 1.77 m2 Carmen Arias [facility] [facility].; [employer]. 09-17-2020 14:05-0400 Body weight 75.3 kg Carmen Arias DIETARY AIDE COOK [place] [employer] [facility] Health.; [employer]. 09-17-2020 14:05-0400 Diastolic blood pressure 74 mm[Hg] Carmen Arias LPN [place] [facility] [employer]. Comment on above: Patient Position: Sitting; Cuff Location : Left Arm; Cuff Size: Standard 09-17-2020 14:05-0400 Heart rate 60 /min Carmen Arias LPN [place] [facility] [employer]. Comment on above: Pattern: Regular 09-17-2020 14:05-0400 Systolic blood pressure 108 mm[Hg] Carmen Arias LPN [place] [facility] [employer]. Comment on above: Patient Position: Sitting; Cuff Location : Left Arm; Cuff Size: Standard 08-12-2019 11:040 Body height 157.48 cm Elisha Goodmanmarycorinnalindsey MAYO [employer] 08-12-2019 11:210400 Body mass index (BMI) [Ratio] 28.17 kg/m2 Elisha Wenavya DIETARY AIDE COOK [employer] 08-12-2019 11:040 Body surface area Derived from formula 1.71 m2 Elisha Wenavya DIETARY AIDE COOK [employer] 08-12-2019 11: Body weight 69.[address] [facility] [employer] 08-12-2019 11:0400 Diastolic blood pressure 71 mm[Hg] Elisha Wenavya ARELLANON [employer] Comment on above: Patient Position: Sitting; Cuff Location : Left Arm; Cuff Size: Standard 08-12-2019 11:210400 Heart rate 82 /min Elisha Goodmannavya DIETARY AIDE COOK [employer] Comment on above: Pattern: Regular 08-12-2019 11:210400 Systolic blood pressure 112 mm[Hg] Elisha Goodmanmarlenelindsey DIETARY AIDE COOK [employer] Comment on above: Patient Position: Sitting; Cuff Location : Left Arm; Cuff Size: Standard 09-24-2018 13:040 Body height 157.48 cm Elisha Wenavya MAYO [employer] 09-24-2018 13:040 Body mass index (BMI) [Ratio] 26.89 kg/m2 Elisha Wenavya DIETARY AIDE COOK [employer] 09-24-2018 13:0400 Body surface area Derived from formula 1.68 m2 Elisha Wenavya MAYO [employer]. 09-24-2018 13:210400 Body weight 66.68 kg Elisha Franks MARIA ESTHER [place] [employer] [facility] [employer] 09-24-2018 13:0400 Diastolic blood pressure 74 mm[Hg] Elisha Goodmanmarlenelindsey DIETARY [facility]IDE [facility].; [employer] Comment on above: Patient Position: Sitting; Cuff Location : Left Arm; Cuff Size: Standard 09-24-2018 13:210400 Heart rate 71 /min Elisha Wenavya [facility] [employer] Comment on above: Pattern: Regular 09-24-2018 13:21-0400 Systolic blood pressure 117 mm[Hg] Elisha Goodmannavya [facility] [employer] Comment on above: Patient Position: Sitting; Cuff Location : Left Arm; Cuff Size: Standard 09-10-2017 14:040 Body height 157.48 cm Elisha Wenavya [facility], [facility].; [employer] 09-10-2017 14:110400 Body mass index (BMI) [Ratio] 25.62 kg/m2 Elisha Wenavya [facility], [facility] [employer] 09-10-2017 14:110400 Body surface area Derived from formula 1.64 m2 Elisha Rexnavya [facility] [employer] [facility], [facility].; [place] [employer] [address] 09-10-2017 14:110400 Body weight 63.53 kg Elisha Wenavya [facility], [facility] 09-10-2017 14:110400 Diastolic blood pressure 71 mm[Hg] Elisha Goodmannavya [facility] [address] Comment on above: Patient Position: Sitting; Cuff Location : Left Arm; Cuff Size: Standard 09-10-2017 14:110400 Heart rate 84 /min Elisha Wenavya DIETARY AIDE COOK [place] [employer] Comment on above: Pattern: Regular 09-10-2017 14:11-0400 Systolic blood pressure 109 mm[Hg] Elisha Franks DIETARY AIDE COOK [employer] Comment on above: Patient Position: Sitting; Cuff Location : Left Arm; Cuff Size: Standard 08-13-2017 11:030400 Body height 157.48 cm Elisha Dietzotoniel MAYO [employer] 08-13-2017 11:03-0400 Body mass index (BMI) [Ratio] 25.46 kg/m2 Elisha Dietzotoniel ARELLANON [employer] 08-13-2017 11:03-0400 Body surface area Derived from formula 1.[address] [facility] [employer] 08-13-2017 11:030400 Body weight 63.[address] [facility] [employer] 08-13-2017 11:03-0400 Diastolic blood pressure 76 mm[Hg] Eilsha Dietzcorinnalindsey DIETARY AIDE COOK [employer], [employer]. Comment on above: Patient Position: Sitting; Cuff Location : Left Arm; Cuff Size: Standard 08-13-2017 11:03-0400 Heart rate 74 /min Elisha Dietzotoniel MAYO [employer] Comment on above: Pattern: Regular 08-13-2017 11:03-0400 Systolic blood pressure 115 mm[Hg] Elisha Dietzcorinnalindsey DIETARY AIDE COOK [employer] Comment on above: Patient Position: Sitting; Cuff Location : Left Arm; Cuff Size: Standard 01-09-2017 11:07-0500 Body height 154.94 cm Elisha Goodmannavya DIETARY AIDE COOK [employer] 01-09-2017 11:07-0500 Body mass index (BMI) [Ratio] 26.07 kg/m2 Elisha Dietzerd DIETARY AIDE COOK [employer] 01-09-2017 11:07-0500 Body surface area Derived from formula 1.61 m2 Elisha Tiny MAYO [employer] 01-09-2017 11:07-0500 Body weight 62.6 kg Elisha Tiny MAYO [employer] 01-09-2017 11:07-0500 Diastolic blood pressure 87 mm[Hg] Elisha Tiny MAYO [employer] Comment on above: Patient Position: Sitting; Cuff Location : Left Arm; Cuff Size: Standard 01-09-2017 11:07-0500 Heart rate 66 /min Elisha Franks LPN [employer] Comment on above: Pattern: Regular 01-09-2017 11:07-0500 Systolic blood pressure 119 mm[Hg] Elisha Tiny MAYO [employer]. Comment on above: Patient Position: Sitting; Cuff Location : Left Arm; Cuff Size: Standard 07-25-2016 15:040400 Body height 158.75 cm Vani Obando PA-C Work Phone: [employer] 07-25-2016 15:04-0400 Body mass index (BMI) [Ratio] 26.1 kg/m2 Vani Obando PA-C Work Phone: [employer] 07-25-2016 15:040400 Body surface area Derived from formula 1.68 m2 Vani Obando PA-C Work Phone: [employer] 07-25-2016 15:040400 Body weight 65.77 kg Vani Obando PA-C Work Phone: [employer] 07-25-2016 15:040400 Diastolic blood pressure 80 mm[Hg] Vani Obando PA-C Work Phone: [employer]. Comment on above: Patient Position: Sitting; Cuff Location : Left Arm; Cuff Size: Standard 07-25-2016 15:04-0400 Heart rate 78 /min Vani Obando PA-C Work Phone: [employer]. Comment on above: Pattern: Regular 07-25-2016 15:04-0400 Systolic blood pressure 112 mm[Hg] Vani Obando PA-C Work Phone: [employer] Comment on above: Patient Position: Sitting; Cuff Location : Left Arm; Cuff Size: Standard 07-24-2016 09:140400 Body height 158.75 cm Vnai Obando PA-C Work Phone: [employer] 07-24-2016 09:14-0400 Body mass index (BMI) [Ratio] 26.64 kg/m2 Vani Obando PA-C Work Phone: [employer] 07-24-2016 09:140400 Body surface area Derived from formula 1.69 m2 Vani Obando PA-C Work Phone: [employer] 07-24-2016 09:14-0400 Body temperature 98.4 [degF] Vani Obando PA-C Work Phone: [employer] Comment on above: Method: Tympanic 07-24-2016 09:140400 Body weight 67.13 kg Vani Obando PA-C Work Phone: [employer] 07-24-2016 09:140400 Diastolic blood pressure 69 mm[Hg] Vani Obando PA-C Work Phone: [employer] Comment on above: Patient Position: Sitting; Cuff Location : Left Arm; Cuff Size: Standard 07-24-2016 09:14-0400 Heart rate 64 /min Vani Obando PA-C Work Phone: [facility] Comment on above: Pattern: Regular 07-24-2016 09:14-0400 Systolic blood pressure 106 mm[Hg] Vani Obando PA-C Work Phone: [facility]; [facility] Comment on above: Patient Position: Sitting; Cuff Location : Left Arm; Cuff Size: Standard Encounters Encounter Date Encounter Type Care Provider Facility Start: 07-21-2024 End: 07-21-2024 ambulatory [facility] Work Phone: [facility] Work Phone: Start: 07-21-2024 End: 07-21-[address] Deejay Maya MD -Laboratory Work Phone: Start: 07-21-2024 End: 07-21-2024 ambulatory Deejay Maya Facility:[facility] Start: 06-25-2024 End: 06-25-2024 Office outpatient visit 25 minutes Thiago Rubi MD Work Phone: [facility] Comment on above: Seasonal allergic rh initis, unspecified trigger (Primary Dx); Viral URI with cough Start: 06-25-2024 End: 06-25-2024 [facility]ulatory [facility] Facility:[facility] Start: 05-11-2024 End: 05-11-2024 Subsequent hospital visit by physician [facility] Work Phone: Radiology Comment on above: Elbow injury, left, initial encounter [S59.902A] Start: 05-11-2024 End: 05-11-2024 ambulatory [facility] Facility:[facility] Start: 05-11-2024 End: 05-11-2024 Patient encounter procedure Eryn White APRN.CNP Work Phone: [facility] Comment on above: Elbow injury, left, initial encounter (Primary Dx) Start: 04-20-2024 End: 04-20-2024 Patient encounter procedure Amairani WOODALL -[facility] Work Phone: Start: 04-20-2024 End: 04-20-2024 ambulatory Vanipaz Obando TALISHA Work Phone: [facility] Work Phone: Start: 04-20-2024 End: 04-20-2024 ambulatory Amairani Brooke Facility:[facility] Start: 04-12-2024 End: 04-12-2024 ambulatory [facility] Facility:[facility] Start: 04-12-2024 End: 04-12-2024 Office outpatient visit 25 minutes Sully Bush PA-C Work Phone: [facility] Comment on above: Influenza (Primary D x) Start: 02-04-2024 End: 02-04-2024 ambulatory [facility] Facility:[facility] Start: 02-04-2024 End: 02-04-2024 Office outpatient visit 25 minutes John Shen TAKE AWAY MAN.FACING SLITTER Work Phone: [facility] Comment on above: Acute cough (Primary Dx); URI with cough and congestion Start: 01-23-2024 End: 01-23-2024 [facility] Comment on above: Acute cough [R05.1] Start: 01-23-2024 End: 01-23-2024 ambulatory [facility] Facility:[facility] Start: 01-23-2024 End: 01-23-2024 Patient encounter procedure Urbano Daugherty TAKE AWAY MAN.FACING SLITTER Work Phone: [facility] Comment on above: Acute cough (Primary Dx) Start: 01-17-2024 End: 01-17-2024 ambulatory [facility] Facility:[facility] Start: 01-17-2024 End: 01-17-2024 Office outpatient visit 25 minutes John Shen TAKE AWAY MAN.FACING SLITTER Work Phone: [facility] Comment on above: Sinobronchitis (Prim nevin Dx) Start: 01-13-2024 End: 01-13-2024 Patient encounter procedure Barbi Jolly MATERIAL CHASER-C -[facility] Work Phone: Start: 01-13-2024 End: 01-13-2024 Patient encounter status Barbi Jolly NP-C [facility] Start: 01-13-2024 End: 01-13-2024 ambulatory [facility] Facility:[facility] Start: 11-27-2023 End: 12-04-2023 Telephone encounter Davy Palmer MD Work Phone: [facility] Comment on above: Orders Start: 09-07-2023 End: 09-07-2023 Subsequent hospital visit by physician [facility] Work Phone: Radiology Comment on above: Left wrist pain [M25 .532] Start: 09-07-2023 End: 09-07-2023 ambulatory [facility] Facility:[facility] Start: 09-07-2023 End: 09-07-2023 Office outpatient visit 15 minutes John Shen TAKE AWAY MAN.FACING SLITTER Work Phone: [facility] Comment on above: Left wrist pain (Marilyn maddie Dx) Start: 08-10-2023 End: 08-10-2023 Subsequent hospital visit by physician [facility] Work Phone: Radiology Comment on above: Cough, unspecified t ype [R05.9] Start: 08-10-2023 End: 08-10-2023 ambulatory [facility] Facility:[facility] Start: 08-10-2023 End: 08-10-2023 Office outpatient visit 25 minutes Thiago Rubi MD Work Phone: [facility] Comment on above: Cough, unspecified t ype (Primary Dx); Nasal congestion Start: 06-04-2023 End: 06-04-2023 Patient encounter procedure Eryn White TAKE AWAY MAN.FACING SLITTER Work Phone: [facility] Comment on above: Middle ear effusion, bilateral (Primary Dx); Dizziness; Myalgia Start: 01-13-2023 Non-patient / Non-visit PA Afia Obando PA Work Phone: [facility] Work Phone: Start: 01-12-2023 Non-patient / Non-visit PA Afia Obando PA Work Phone: [facility] Start: 01-12-2023 End: 01-12-2023 ambulatory PA Vani Obando PA Work Phone: [facility] Work Phone: Start: 01-12-2023 End: 01-12-2023 Patient encounter procedure PA Vani Obando PA Work Phone: [facility]-Cardiovascul ar Services Work Phone: Start: 12-08-2022 End: 12-08-2022 ambulatory PA Vani Obando PA Work Phone: [facility] Work Phone: Start: 12-08-2022 End: 12-08-2022 Patient encounter procedure PA Vani Harveyer PA Work Phone: [facility]-Laboratory Work Phone: Start: 11-28-2022 End: 11-28-2022 Patient encounter procedure PA Vani Harveyer PA Work Phone: [facility] Work Phone: Start: 10-23-2022 End: 10-23-2022 Patient encounter procedure PA Vani Harveyer PA Work Phone: [facility] Work Phone: Start: 10-10-2022 End: 10-10-2022 Patient encounter procedure PA Vanipaz Harveyer PA Work Phone: [facility]-Laboratory, Specimen Work Phone: Start: 10-10-2022 End: 10-10-2022 Patient encounter procedure PA Vani Obando PA Work Phone: [facility] Work Phone: Start: 09-30-2022 End: 09-30-2022 Emergency department patient visit [facility]-Emergency Department Work Phone: Start: 08-04-2022 End: 08-04-2022 ambulatory [facility] Start: 07-18-2022 End: 01-06-2023 ambulatory VANI Axel OBANDO [facility] Start: 04-09-2022 End: 04-09-2022 ambulatory PA Vani WOODALL Work Phone: [facility] Work Phone: Start: 04-09-2022 End: 04-09-2022 Patient encounter procedure PA Vani WOODALL Work Phone: [facility]-Laboratory Start: 04-02-2022 End: 04-02-2022 Patient encounter procedure PA Vani Obando PA Work Phone: [facility]-Laboratory, Specimen Start: 04-02-2022 End: 04-02-2022 Patient encounter procedure PA Vani Obando PA Work Phone: [facility] Start: 03-26-2022 End: 03-26-2022 ambulatory PA Vani Obando PA Work Phone: [facility] Work Phone: Start: 03-26-2022 End: 03-26-2022 Patient encounter procedure PA Vani Harveyer PA Work Phone: [facility]-Ultrasound, [facility] Start: 03-20-2022 End: 03-20-2022 ambulatory PA Vani Obando PA Work Phone: [facility] Work Phone: Start: 03-20-2022 End: 03-20-2022 Patient encounter procedure PA Vani Obando PA Work Phone: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 Visit Abnormal uterine ble eding Facet syndrome, lumbar Family history of cardiovascular disease Myxomatous mitral valve Chief Complaint VAGINAL BLEEDING Heavy menses lumbar spine Room 1 1 Y FU (MOVED FROM [facility]) E ORDERS Nonrheumatic mitral (valve) prolapse Amb Documentation Reason for Visit Abnormal uterine ble eding Facet syndrome, lumbar Family history of cardiovascular disease Myxomatous mitral valve Chief Complaint Admit Date 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) January 13, 2024 8:23am 1 Y FU April 20, 2024 3:27 pm INT LAB ORDERS April 20, 2024 4:06 pm Reason for Visit Admit Date Abnormal uterine bleeding January 13, 2024 8:23am Encounter for routine gynecological exam ination January 13, 2024 8:23am Family history of cardiovascular disease April 20, 2024 3:27pm Chief Complaint Admit Date 1 Y FU April 20, 2024 3:27 pm INT LAB ORDERS April 20, 2024 4:06 pm SCREENING July 21, 2024 8:15a m Reason for Visit Admit Date Family history of cardiovascular disease April 20, 2024 3:27pm Additional Source Comments INFORMATION SOURCE (unrecogn ized section and content) DATE CREATED AUTHOR 09/08/2019 [facility] DATE CREATED AUTHOR AUTHOR'S ORGANIZ ATION 01/08/2023 [facility] DATE CREATED AUTHOR AUTHOR'S ORGANIZ ATION 12/07/2023 [facility] DATE CREATED AUTHOR AUTHOR'S ORGANIZ ATION 06/26/2024 [facility] DATE CREATED AUTHOR AUTHOR'S ORGANIZ ATION 07/26/2024 [facility] Care Teams (unrecognized sec tion and content) Team Status: Active Member Role Status Dates TALISHA Azevedo Family Provider Active TALISHA Azevedo Primary Care Provider Active Team Status: Inactive Member Role Status Dates TALISHA Azevedo Primary Care Provider, Referring Provider Active Kiki Desir CNM Attending Provider Active Team Status: Active Member Role Status Dates TALISHA Azevedo Primary Care Provider Active Kiki Desir CNM Attending Provider, Referring Pr ovider Active Team Status: Inactive Member Role Status Dates TALISHA Azevedo Primary Care Provider Active Kiki Desir CNM Attending Provider, Referring Pr ovider Active Team Status: Inactive Member Role Status Dates TALISHA Azevedo Primary Care Provider, Referring Provider Active Christen Wynn NP, NP-C Attending Provider Active Team Status: Active Member Role Status Dates TALISHA Azevedo Primary Care Provider Active Christen Kingsley MATERIAL CHASER, MATERIAL CHASER-C Attending Provider Active Team Status: Inactive Member Role Status Dates Vani Obando PA, PA Primary Care Provider Active Christen Wynn MATERIAL CHASER, MATERIAL CHASER-C Attending Provider Active Team Status: Inactive Member Role Status Dates Vani Obando PA, PA Primary Care Provider Active Kiki Desir CNM Attending Provider Active Team Status: Inactive Member Role Status Dates Vani Obando PA, PA Primary Care Provider Active Dr. Shirin Macdonald DO Emergency Provider Active Team Status: Inactive Member Role Status Dates Vani Obando PA, PA Primary Care Provider, Referring Provider Active Dr. Nils Bond MD Active Amairani Brooke PA, PA Attending Provider Active Team Status: Inactive Member Role Status Dates Vani Obando PA, PA Primary Care Provider, Referring Provider Active Dr. Jamison Alex DO Attending Provider Active Team Status: Inactive Member Role Status Dates Vani Obando PA, PA Primary Care Provider Active Dr. Nils Bond MD Attending Provider Active Team Status: Inactive Member Role Status Dates Vani Obando PA, PA Primary Care Provider Active Dr. Shirin Macdonald DO Attending Provider, [facility] Team Status: Inactive Member Role Status Dates Vani Obando PA, PA Primary Care Provider Active Amairani Brooke PA, PA Attending Provider, Referr ing Provider Active Team Status: Active Member Role Status Dates Vani Obando PA, PA Primary Care Provider Active Dr. Nils Bond MD Attending Provider Active Team Status: Active Member Role Status Dates Vani Obando PA, PA Primary Care Provider Active Gasper Dunaway MATERIAL CHASER, MATERIAL CHASER-C Attending Provider Active [employer] Relationship Specialty Start Date End Date Vani Obando Axel [address] [place] [address] PCP - General Family Medicine 06/29/19 [employer] Business Consultant Relationship Specialty Start Date End Date Vani Obando Axel [address] [place] [address] PCP - General Family Medicine 06/29/19 [employer] Business Consultant Relationship Specialty Start Date End Date Vani Obando Axel [address] [place] [address] PCP - General Family Medicine 06/29/19 Franchise Business Consultant Relationship Specialty Start Date End Date Vani Obando [address] [place] [address] PCP - General Family Medicine 06/29/19 Fr[employer]ise Business Consultant Relationship Specialty Start Date End Date Vani Obando [address] [place] [address] PCP - General Family Medicine 06/29/19 Franchise Business Consultant Relationship Specialty Start Date End Date Vani Obando [address] [place] [address] PCP - General Family Medicine 06/29/19 Fr[employer]ise Business Consultant Relationship Specialty Start Date End Date Vani Obando [address] [place] [address] PCP - General Family Medicine 06/29/19 Franchise Business Consultant Relationship Specialty Start Date End Date Vani Obando [address] [place] [place] [address] PCP - General Family Medicine 06/29/19 [employer]ise Business Consultant Relationship Specialty Start Date End Date Vani Obando [address] [place] [place] [address] PCP - General Family Medicine 06/29/19 [employer]ise Business Consultant Relationship Specialty Start Date End Date Vani Obando [address] [place] [place] [address] PCP - General Family Medicine 06/29/19 [employer]ise Business Consultant Relationship Specialty Start Date End Date Vani Obando [address] [place] [place] [address] PCP - General Family Medicine 06/29/19 Team Status: Inactive Member Role Status Dates Vani WOODALL PA Primary Care Provider Active Start: January 13, 2024 End: January 13, 2024 Vani WOODALL, PA Referring Provider Active Start: January 13, 2024 End: January 13, 2024 ROSE MARIE Smith Attending Provider Active Start: January 13, 2024 End: January 13, 2024 Team Status: Inactive Member Role Status Dates Vani Obando PA PA Primary Care Provider Active Start: April 20, 2024 End: April 20, 2024 Vani WOODALL PA Referring Provider Active Start: April 20, 2024 End: April 20, 2024 Amairani WOODALL PA Attending Provider Active Start: April 20, 2024 End: April 20, 2024 Team Status: Inactive Member Role Status Dates Vani WOODALL PA Primary Care Provider Active Start: April 20, 2024 End: April 20, 2024 Amairani WOODALL, PA Attending Provider Active Start: April 20, 2024 End: April 20, 2024 Amairani WOODALL, PA Referring Provider Active Start: April 20, 2024 End: April 20, 2024 [employer] Business Consultant Relationship Specialty Start Date End Date Vani Obando [address] [place] [address] PCP - General Family Medicine 06/29/19 Team Status: Inactive Member Role Status Dates Vani WOODALL, PA Primary Care Provider Active Start: July 21, 2024 End: July 21, 2024 Dr. Deejay Maya MD Attending Provider Active Start: July 21, 2024 End: July 21, 2024 Dr. Deejay Maya MD Referring Provider Active Start: July 21, 2024 End: July 21, 2024 Goals (unrecognized section and content) Goals may be documented in a n alternate sectionGoals may be documented in an alternate sectionGoals may be documented in an alternate sectionGoals may be documented in an alternate sectionGoals may be documented in an alternate sectionGoals may be documented in an alternate sectionGoals may be documented in an alternate sectionGoals may be documented in an alternate section Source Comments (unrecognize d section and content) In the event this informatio n is protected by the Federal Confidentiality of Alcohol and Drug Abuse Patient Records regulations: The Federal rules restrict any use of the information to criminally investigate or prosecute any alcohol or drug abuse patient.[facility] RehabilitationIn the event this information is protected by the Federal Confidentiality of Alcohol and Drug Abuse Patient Records regulations: The Federal rules restrict any use of the information to criminally investigate or prosecute any alcohol or drug abuse patient.[facility] RehabilitationIn the event this information is protected by the Federal Confidentiality of Alcohol and Drug Abuse Patient Records regulations: The Federal rules restrict any use of the information to criminally investigate or prosecute any alcohol or drug abuse patient.[facility] RehabilitationIn the event this information is protected by the Federal Confidentiality of Alcohol and Drug Abuse Patient Records regulations: The Federal rules restrict any use of the information to criminally investigate or prosecute any alcohol or drug abuse patient.[facility] RehabilitationIn the event this information is protected by the Federal Confidentiality of Alcohol and Drug Abuse Patient Records regulations: The Federal rules restrict any use of the information to criminally investigate or prosecute any alcohol or drug abuse patient.[facility] RehabilitationIn the event this information is protected by the Federal Confidentiality of Alcohol and Drug Abuse Patient Records regulations: The Federal rules restrict any use of the information to criminally investigate or prosecute any alcohol or drug abuse patient.[facility] RehabilitationIn the event this information is protected by the Federal Confidentiality of Alcohol and Drug Abuse Patient Records regulations: The Federal rules restrict any use of the information to criminally investigate or prosecute any alcohol or drug abuse patient.[facility] RehabilitationIn the event this information is protected by the Federal Confidentiality of Alcohol and Drug Abuse Patient Records regulations: The Federal rules restrict any use of the information to criminally investigate or prosecute any alcohol or drug abuse patient.[facility] RehabilitationIn the event this information is protected by the Federal Confidentiality of Alcohol and Drug Abuse Patient Records regulations: The Federal rules restrict any use of the information to criminally investigate or prosecute any alcohol or drug abuse patient.[facility] RehabilitationIn the event this information is protected by the Federal Confidentiality of Alcohol and Drug Abuse Patient Records regulations: The Federal rules restrict any use of the information to criminally investigate or prosecute any alcohol or drug abuse patient.[facility] RehabilitationIn the event this information is protected by the Federal Confidentiality of Alcohol and Drug Abuse Patient Records regulations: The Federal rules restrict any use of the information to criminally investigate or prosecute any alcohol or drug abuse patient.[facility] RehabilitationIn the event this information is protected by the Federal Confidentiality of Alcohol and Drug Abuse Patient Records regulations: The Federal rules restrict any use of the information to criminally investigate or prosecute any alcohol or drug abuse patient.[facility] RehabilitationIn the event this information is protected by the Federal Confidentiality of Alcohol and Drug Abuse Patient Records regulations: The Federal rules restrict any use of the information to criminally investigate or prosecute any alcohol or drug abuse patient.[facility] RehabilitationIn the event this information is protected by the Federal Confidentiality of Alcohol and Drug Abuse Patient Records regulations: The Federal rules restrict any use of the information to criminally investigate or prosecute any alcohol or drug abuse patient.[facility] Reason for Visit (unrecogniz ed section and content) Reason Comments Fever Bodyaches, dizziness , SOB x4 days Reason Comments Cough Congestion and off b alance x1 mth Reason Comments Trauma Left wrist pain x 2 days Reason Comments Orders Reason Comments Sinus Problem sinus pressure, drai nage, cough x 1 week Reason Comments Cough Chest congestion, si nus pressure and pain, productive cough, chest pain and discomfort, x 2 weeks Reason Comments Cough Was seen previously for pneumonia, worsening congestion and cough Reason Comments Cough Cough, bodyaches, ST and MARTINES x 1 day Reason Comments Arm Injury L arm injury x last night, elbow radiating to forearm and shoulder Reason Comments Nasal Congestion drainage, cough x 3 days FOR RECORDS PERTAINING TO PATIENTS WHO ARE OR HAVE BEEN ENROLLED IN A CHEMICAL DEPENDENCY/SUBSTANCEABUSE PROGRAM, SOME INFORMATION MAY BE OMITTED. This clinical summary was aggregated from multiple sources. Caution should be exercised in using it in the provision of clinical care. This summary normalizes information from multiple sources, and as a consequence, information in this document may materially change the coding, format and clinical context of patient data. In addition, data may be omitted in some cases. CLINICAL DECISIONS SHOULD BE BASED ON THE PRIMARY CLINICAL RECORDS. [facility]. provides no warranty or guarantee of the accuracy or completeness of information in this document.
[2025-02-13 21:07] LABS: Chlamydia By Nucleic Acid AMP Negative (Negative); Gonococcus By Nucleic Acid AMP Negative (Negative)
== END | disposition home or self-care (01) ==
LOC: LABSPEC 11:55
PROVIDERS: PCP Physician Assistant; Visit Provider Student in an Organized Health Care Education/Training Program
DX: O09.90 Supervision of high risk pregnancy, unspecified, unspecified trimester (principal); Z3A.00 Weeks of gestation of pregnancy not specified
CPT/HCPCS: 87086; 87088; 87491; 87591